=== PATIENT | female | born 1965 | race Caucasian/White ===

== ENCOUNTER 2024-08-21 07:29 | Emergency (ER) | payer OTHER, SELFPAY ==
[2024-08-21 07:35] VITALS: BP 193/99; PULSE 74; TEMP 36.6; O2SAT 98; BMI 42.8
--- NOTE | 2024-08-21 07:42 | XR_ITS ---
The [address] [address] Patient Name: DYLAN TRAN MRN: [id number] date: 1965 Sex: F Assigned Patient Location: ER Current Patient Location: ED.MAIN Accession/Order Number: [id number] Exam Date: 08/21/2024 07:50 Report Date: 08/21/2024 09:28 At the request of: DEAN FERMIN Procedure: XR knee RT 3V RIGHT KNEE THREE VIEWS: 08/21/2024 7:50 AM EDT Clinical Data: pain Comparison: No previous No evidence of acute fracture or dislocation. Small amount of fluid suprapatellar recess of the joint. No large shar effusion is evident. 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 Widths of both compartments are slightly reduced. Slight spurring at the lateral and medial compartments. Tug like overgrowth at the insertion/origins of the quadriceps and patellar tendons. Infrapatellar fat is preserved. XR/XR knee RT 3V IMPRESSION: 1. No evidence of acute fracture or dislocation. Electronically authenticated by: WHIT SANCHEZ Date: 08/21/2024 09:28
[2024-08-21] MEDS: KETOROLAC TROMETHAMINE 60 MG/2 ML VIAL IM (08:09)
--- NOTE | 2024-08-21 08:21 | ED.LOWEXI1 ---
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 And she thinks that she twisted her knee while walking and she started hurting right away, today she woke up not able to extend her knee without pain No fall or trauma no head injury Related Data Previous Rx's ?Medication ?Instructions ?Recorded diclofenac sodium 75 mg 75 mg PO BID PRN pain #14 tabs 08/21/24 tablet,delayed release Allergies Allergy/AdvReac Type Severity Reaction Status Date / Time No Known Drug Allergies Allergy Verified 08/21/24 07:35 Opioid HPI Opioid Management Most Recent Pain and Opioid Data: Last Pain Scale 0 08/21/24 09:22 08/21/24 Last ED Pain Assessment 08/21/24 09:22 Last MAR Pain Assessment 08/21/24 08:09 Review of Systems ROS Status of ROS 10 or more systems reviewed and unremarkable except as noted in history and below Exam Narrative Exam Narrative: Nurses notes and vital signs reviewed and patient is not hypoxic. Right knee exam; the patient have full range of movement preserved except for the full extension causing pain mostly anteriorly just below the patella and inside the knee. The patient had a negative anterior and posterior drawer signs General: Well-appearing and in no apparent distress. Skin: Warm, dry, no pallor noted. No rash. Head: Normocephalic, atraumatic. Neck: Supple, non-tender. Eye: Pupils are equal, round and EOMI. No scleral icterus. Ears, Nose, Mouth, and Throat: TM are clear, no nasal mucosal hypertrophy. Oral mucosa is moist, no posterior oropharynx erythema, uvula is mid-line Cardiovascular: Regular Rate and Rhythm without murmur, gallop or rub. Respiratory: No accessory muscle use or respiratory distress. Lungs are clear to auscultation, no wheezing, rales or rhonchi Chest Wall: no tenderness Back: No midline thoracic or lumbar vertebral tenderness. No CVA tenderness GI: Abdomen is soft, non-distended. Normal bowel sounds. No masses appreciated. No tenderness to palpation. No rebound, guarding, or rigidity noted. Neurological: A&O x4. No cranial nerve dysfunction observed. No truncal ataxia. Moves all extremities. Sensation intact. Psychiatric: Cooperative and interactive. Normal mood and affect. Constitutional Vital Signs, click to edit/add: Last Vital Signs Temp 97.8 F 08/21/24 07:35 Pulse 74 08/21/24 07:35 Resp 18 08/21/24 07:35 BP 193/99 H 08/21/24 07:35 Pulse Ox 98 08/21/24 07:35 O2 Del Method Room Air 08/21/24 07:35 Course Vital Signs Vital signs: Vital Signs Temperature 97.8 F 08/21/24 07:35 Pulse Rate 74 08/21/24 07:35 Respiratory Rate 18 08/21/24 07:35 Blood Pressure 193/99 H 08/21/24 07:35 Pulse Oximetry 98 08/21/24 07:35 Oxygen Delivery Method Room Air 08/21/24 07:35 Temperature 97.8 F 08/21/24 07:35 Pulse Rate 74 08/21/24 07:35 Respiratory Rate 18 08/21/24 07:35 Blood Pressure 193/99 H 08/21/24 07:35 Pulse Oximetry 98 08/21/24 07:35 Oxygen Delivery Method Room Air 08/21/24 07:35 MDM - Extremity Injury (Lower) MDM Narrative Medical decision making narrative: Right now the patient is not able to put weight on her right knee because it hurts and full extension of the knee also cause a lot of pain Right now the patient since we do not have work comp in our facility the patient will be referred to workup as outpatient X-ray of the right knee shows no acute pathology The patient was provided with Norman wrap as well as crutches with rest and elevation of the right knee for the next 2 days in addition to follow-up with work comp for possible referral to orthopedic on Friday Patient provided with Voltaren pills as well for pain management Discharge Plan Discharge Chief Complaint: Extremity Injury, Lower Clinical Impression: Injury of knee, ligament Qualifiers: Encounter type: initial encounter Laterality: right Qualified Code(s): S89.91XA - Unspecified injury of right lower leg, initial encounter Patient Disposition: Home, Self-Care Time of Disposition Decision: 09:26 Condition: Good Prescriptions / Home Meds: New diclofenac sodium 75 mg tablet,delayed release (DR/EC) 75 mg PO BID PRN (Reason: pain) Qty: 14 0RF Print Language: Tanzanian Instructions: Knee Sprain (ED), Crutch Instructions (ED), Meniscus Tear (ED) Additional Instructions: The patient to rest her right knee with crutches and the Norman wrap in addition to elevation for the next 2 days after that the patient can still use the crutches until she is evaluated by orthopedic and work comp Referrals: Ban Limon [Primary Care Provider] - 1 week Discharge Date/Time: 08/21/24 09:39
[2024-08-21 09:37] VITALS: PULSE 74; O2SAT 100
== END 2024-08-21 09:39 | disposition home or self-care (01) ==
PROVIDERS: Emergency Provider Emergency Medicine; PCP Nurse Practitioner Family
DX: S89.81XA Other specified injuries of right lower leg, initial encounter (principal); X50.1XXA Overexertion from prolonged static or awkward postures, initial encounter; Y93.89 Activity, other specified
CPT/HCPCS: 73562; 96372; 99284; J1885

== ENCOUNTER 2025-06-21 07:19 | Emergency (ER) | payer OTHER, BC, SELFPAY ==
--- OUTSIDE RECORDS SUMMARY | 2025-06-21 07:32 | XMS_ITS | CCD ---
Author Organization [facility] CliniSynj Care Team Providers Care Leather Piece Inspector Name Role Phone JEANIE SHULTZ Admitting Unavailable JEANIE SHULTZ Attending Unavailable PETTING, SARAH Primary Care Unavailable JEANIE SHULTZ Consulting Unavailable SHAKEEL, KEYANA Admitting Unavailable SHAKEEL, KEYANA Attending Unavailable SHAKEEL, KEYANA Primary Care Unavailable LISBETH SIMPSON Consulting Unavailable SHAKEEL, KEYANA Consulting Unavailable SARAH BETANCOURT Primary Care Physician [phone] Majo Vance Unavailable Unavailable Sridhar Dallas A Attending Unavailable Sridhar Dallas A Admitting Unavailable Dallas Waller Referring Unavailable Radha Diego Attending Unavailable SARAH BETANCOURT Referring Unavailable Sridhar, Dallas A Attending Unavailable Brown, Dallas A Admitting Unavailable Brown, Dallas A Referring Unavailable Brown, Dallas A Attending Unavailable Brown, Dallas A Admitting Unavailable Brown, Dallas A Referring Unavailable Petznick, DO Sarah Primary Care Provider [phone] Petznick, DO Sarah Attending Provider [phone] Juan C France Unavailable Petznick DO Sarah Primary Care Provider [phone] Negra FISHMAN, Anthony Attending Provider Petznick DO, Sarah Primary Care Provider [phone] Negra FISMHAN, Edward Attending Provider PetSarah benitez Primary Care Unavailable Radatz Jr, Edward Admitting Unavailable Radatz Jr, Edward Attending Unavailable Radatz Jr, Edward Admitting Unavailable Petznick, Sarah Primary Care Unavailable Radatz Jr, Edward Attending Unavailable Radatz Jr, Edward Admitting Unavailable Petznick, Sarah Primary Care Unavailable Radatz Jr, Edward Attending Unavailable Radatz Jr, Edward Attending Unavailable Petznick, Sarah Primary Care Unavailable Anthony Omer Jr Admitting Unavailable Anthony Omer Jr Admitting Unavailable Sarah Betancourt Primary Care Unavailable Anthony Omer Jr Attending Unavailable Sarah Betancourt Primary Care Unavailable Diego Duran Admitting Unavailable Diego Duran Attending Unavailable Sarah Betancourt DO Primary Care Provider SARAH BETANCOURT Attending Unavailable SARAH BETANCOURT Attending Unavailable RICHI HOANG Attending Unavailable SARAH BETANCOURT Referring Unavailable Medications Current Medications Medication Drug Class(es) Dates Sig (Normalized) Sig (Original) 0.5 ML semaglutide 0.5 MG/ML Auto-Injector [Wegovy] (4 sources) Start: 06-11-2023 inject 0.25 mg by subcutaneous injection every week Wegovy 0.25 MG/0.5ML 0.25 mg Subcutaneous Once weekly for 30 days May, Active inject 0.25 mg by keller bcutaneous injection every week Wegovy 0.25 MG/0.5ML 0.25 mg Subcutaneou s Once weekly for 30 days Active acetaminophen 500 mg oral tablet (2 sources) Start: 08-13-2019 take 2 tablets by mouth three times daily as needed for pain Tylenol Extra Strength 500 mg oral tablet 1,000 mg = 2 tab(s), Oral, TID, PRN as needed for pain, Refills(s) 0, Pain Start Date: 08/13/19 Status: Ordered acetaminophen 325 mg / HYDROcodone bitartrate 5 mg oral tablet (4 sources) Opioid Agonist Start: 02-15-2024 take 1 tablet by mouth every six hours as needed for pain Hydrocodone-Aceta minophen 5-325 mg tablet Active 1 TAB PO Q6H as needed for Pain 10 February 15, 2024 azithromycin 250 mg oral tablet (2 sources) Macrolide Antimicrobial Start: 05-17-2025 End: 05-22-2025 take 2 tablets by mouth once daily, then take 1 tablet by mouth once daily azithromycin (Zithromax) 250 MG tablet Indications: Sore throat , Pharyngitis, unspecified etiology Take 2 tablets (500 mg) by mouth Daily for 1 day, THEN 1 tablet (250 mg) Daily for 4 days. 6 tablet 05/17/2025 05/22/2025 Active celecoxib 100 mg oral capsule (2 sources) Nonsteroidal Anti-inflammatory Drug Start: 01-04-2022 take 1 capsule by mouth twice daily as needed for pain CeleBREX 100 mg Cap 100 mg = 1 cap(s), Oral, BID, PRN for pain, # 60 cap(s), Refills(s) 0, Pharm[facility]: [facility], 170, cm, 12/20/21 13:31:00 EST, Height/Length Dosing, 121, kg, 12/20/21 13:31:00 EST, Weight Dosing Start Date: 01/04/22 Status: Ordered dexamethasone 6 mg oral tablet (4 sources) Corticosteroid Start: 05-17-2025 End: 05-20-2025 take 1 tablet by mouth once daily dexAMETHasone (Decadron) 6 MG tablet Indications: Sore throat , Pharyngitis, unspecified etiology Take 1 tablet (6 mg) by mouth Daily for 3 days 3 tablet 05/17/2025 Active docusate sodium 100 mg oral capsule (2 sources) Start: 01-04-2022 take 1 capsule by mouth twice daily as needed for constipation Colace 100 mg Cap 100 mg = 1 cap(s), Oral, BID, PRN for constipation, # 20 cap(s), Refills(s) 0, [facility]: [facility], 170, cm, 12/20/21 13:31:00 EST, Height/Length Dosing, 121, kg, 12/20/21 13:31:00 EST, Weight Dosing Start Date: 01/04/22 Status: Ordered famotidine 40 mg oral tablet (6 sources) Histamine-2 Receptor Antagonist Start: 10-15-2020 take 1 tablet by mouth once daily at bedtime Famotidine (Pepcid) 40 mg tablet Active 40 MG PO Daily at bedtime October 15, 2020 12:00am ibuprofen 800 mg oral tablet (6 sources) Nonsteroidal Anti-inflammatory Drug Start: 02-15-2024 take 1 tablet by mouth three times daily as needed for pain Ibuprofen 800 mg tablet Active 800 MG PO Three times daily as needed for Pain February 14, 2024 11:00pm Start: 08-13-2019 take 2 tablets by mo [facility] three times daily as needed for pain ibuprofen 200 mg Tab 400 mg = 2 tab(s), Oral, TID, PRN as needed for pain, Refills(s) 0, Pain Start Date: 08/13/19 Status: Ordered ondansetron 4 mg disintegrating oral tablet (10 sources) Serotonin-3 Receptor Antagonist Start: 02-15-2024 Ondansetron 4 mg tablet,disintegrating Active 4 MG PO every 6 to 8 hours February 14, 2024 11:00pm Start: 10-15-2020 take 1 tablet by erin th every six hours as needed for nausea and vomiting Ondansetron Hcl (Zofran) 4 mg tablet Active 4 MG PO Q6H as needed for nausea and vomiting October 15, 2020 12:00am phentermine hydrochloride 37.5 mg oral tablet (1 source) Sympathomimetic Amine Anorectic Start: 08-06-2023 take 1 tablet by mouth once daily before breakfast Phentermine HCl 37.5 MG 1 tablet before breakfast Orally Once a day for 30 days Jul, Active predniSONE 20 mg oral tablet (3 sources) Start: 04-20-2025 End: 04-30-2025 take 2 tablets by mouth once daily, then take 1 tablet by mouth once daily, then take 0.5 tablet by mouth once daily predniSONE (Deltasone) 20 MG tablet Indications: Herpes zoster without complication Take 2 tablets (40 mg) by mouth Daily for 3 days, THEN 1 tablet (20 mg) Daily for 3 days, THEN 0.5 tablets (10 mg) Daily for 4 days. 11 tablet 04/20/2025 04/30/2025 Active rosuvastatin calcium 20 mg oral tablet (5 sources) HMG-CoA Reductase Inhibitor Start: 05-12-2025 End: 05-12-2026 take 1 tablet by mouth once daily rosuvastatin (Crestor) 20 MG tablet Indications: Pure hypercholesterolemia Take 1 tablet (20 mg) by mouth Daily 30 tablet 11 05/12/2025 05/12/2026 Active SEMAGLUTIDE, 1 MG/DOSE, SC (8 sources) SEMAGLUTIDE, 1 M G/DOSE, SC Inject under the skin [facility] in [place]-unsure of dosage. Currently using 40cc weekly Active tamsulosin hydrochloride 0.4 mg oral capsule (4 sources) alpha-Adrenergic Roseann Start: 04-28-2024 take 1 capsule by mouth once daily Tamsulosin (Flomax) 0.4 mg capsule Active 0.4 MG PO Daily February 14, 2024 11:00pm tizanidine (1 source) Central alpha-2 Adrenergic Agonist Start: 10-22-2022 tizanidine Orally at bedtime, Refills(s) 0 Start Date: 10/22/22 Status: Ordered valACYclovir 1000 mg oral tablet (3 sources) Herpesvirus Nucleoside Analog DNA Polymerase Inhibitor, Herpes Simplex Virus Nucleoside Analog DNA Polymerase Inhibitor, Herpes Zoster Virus Nucleoside Analog DNA Polymerase Inhibitor Start: 04-20-2025 End: 04-27-2025 valACYclovir (Valtrex) 1 g tablet Indications: Herpes zoster without complication Take 1 tablet (1,000 mg) by mouth in the morning and 1 tablet (1,000 mg) at noon and 1 tablet (1,000 mg) in the evening. Do all this for 7 days. 21 tablet 04/20/2025 04/27/2025 Active valsartan 160 mg oral tablet (8 sources) Angiotensin 2 Receptor Roseann Start: 04-20-2025 End: 04-20-2026 take 1 tablet by mouth once daily valsartan (Diovan) 160 MG tablet Indications: Elevated blood pressure reading Take 1 tablet (160 mg) by mouth Daily 30 tablet 3 04/20/2025 04/20/2026 Active Completed/Discontinued Medications Medication Drug Class(es) Dates Sig (Normalized) Sig (Original) Acetaminophen / oxyCODONE (2 sources) Opioid Agonist Start: 01-04-2022 Percocet 325 mg-5 mg Tab See Instructions, as needed for pain, 40 tab(s), Refill(s) 0, 1-2 tab(s) Oral q4hr, [facility], 170, cm, 12/20/21 13:31:00 EST, Height/Length Dosing, 121, kg, 12/20/21 13:31:00 EST, Weight Dosing Start Date: 01/04/22 Status: Ordered Start: 01-04-2022 Percocet 325 m g-5 mg Tab See Instructions, as needed for pain, 40 tab(s), Refill(s) 0, 1-2 tab(s) Oral q4hr, [facility], 170, cm, 12/20/21 13:31:00 EST, Height/Length Dosing, 121, kg, 12/20/21 13:31:00 EST, Weight Dosing Start Date: 01/04/22 Status: Ordered Problems Active Problems Problem Classification Problem Date Documented Date Episodic/Chronic Administrative/socia l admission (4 sources) Dietary counseling and surveillance; Translations: [Other specified counseling] Episodic Calculus of urinary tract (17 sources) Kidney stone; Translations: [Calculus of kidney] Onset: 02-15-2024 02-23-2024 Episodic Cancer; other and unspecified primary (2 sources) H/O Malignant melanoma 12-20-2021 Episodic Diabetes mellitus without complication (3 sources) Other abnormal glucose Episodic Disorders of lipid metabolism (6 sources) Dyslipidemia; Translations: [Hyperlipidemia, unspecified] Chronic Esophageal disorders (6 sources) Gastroesophageal reflux disease; Translations: [Gastro-esophageal reflux disease without esophagitis] Chronic Genitourinary symptoms and ill-defined conditions (2 sources) Dysuria; Translations: [Dysuria] 04-20-2025 Episodic Nonmalignant breast conditions (4 sources) Fibrocystic disease of breast; Translations: [Diffuse cystic mastopathy of right breast] Chronic Osteoarthritis (12 sources) Arthritis of hip; Translations: [Unilateral primary osteoarthritis, unspecified hip] Onset: 04-20-2025 04-20-2025 Chronic Other acquired deformities (4 sources) Acquired kyphosis; Translations: [Other secondary kyphosis, cervical region] Chronic Other circulatory disease (3 sources) Elevated blood pressure; Translations: [Elevated blood-pressure reading, without diagnosis of hypertension] 04-20-2025 Episodic Other connective tissue disease (4 sources) Bicipital tendinitis, right shoulder; Translations: [BICIPITAL TENDINITIS RIGHT SHOULDER] Onset: 06-02-2019 Episodic Other connective tissue disease (3 sources) Pain in right arm; Translations: [PAIN IN RIGHT ARM] Onset: 05-01-2019 Episodic Other connective tissue disease (8 sources) Partial thickness rotator cuff tear; Translations: [Incomplete rotator cuff tear or rupture of unspecified shoulder, not specified as traumatic] Onset: 04-20-2025 04-20-2025 Episodic Other nervous system disorders (4 sources) Cervical myelopathy; Translations: [Disease of spinal cord, unspecified] Chronic Other non-epithelial cancer of skin (2 sources) Basal cell carcinoma of skin 12-20-2021 Episodic Other nutritional; endocrine; and metabolic disorders (4 sources) Morbid obesity; Translations: [Morbid (severe) obesity due to excess calories] Chronic Other nutritional; endocrine; and metabolic disorders (3 sources) Morbid (severe) obesity due to excess calories Chronic Other nutritional; endocrine; and metabolic disorders (8 sources) Body mass index 40+ - severely obese; Translations: [Morbid (severe) obesity due to excess calories] Onset: 04-20-2025 04-20-2025 Chronic Other nutritional; endocrine; and metabolic disorders (2 sources) Severe obesity; Translations: [Morbid (severe) obesity due to excess calories] 05-17-2025 Chronic Other screening for suspected conditions (not mental disorders or infectious disease) (8 sources) Patient encounter status; Translations: [Encounter for screening mammogram for malignant neoplasm of breast] Onset: 05-25-2025 04-20-2025 Episodic Other upper respiratory infections (16 sources) Sinusitis; Translations: [Chronic sinusitis, unspecified] Onset: 04-20-2025 04-20-2025 Chronic Other upper respiratory infections (4 sources) Sore throat symptom; Translations: [Acute pharyngitis, unspecified] 05-17-2025 Episodic Spondylosis; intervertebral disc disorders; other back problems (20 sources) Lumbar arthritis; 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, lumbar region] Onset: 04-20-2025 04-20-2025 Chronic Sprains and strains (1 source) Sprain of unspecified site of right knee, subsequent encounter; Translations: [Sprain of unspecified site of right knee, subsequent encounter] Onset: 12-13-2024 Episodic Past or Other Problems Problem Classification Problem Date Documented Da te Episodic/Chronic Other connective tissue disease (10 sources) Disorder of rotator cuff; Translations: [Unspecified disorder of synovium and tendon, unspecified shoulder] Onset: 04-20-2025 Resolved: 05-17-2025 08-13-2019 Episodic Comment on above: right Spondylosis; intervertebral disc disorders; other back problems (20 sources) Backache; Translations: [Chronic low back pain] Onset: 04-20-2025 Resolved: 05-17-2025 01-04-2022 Episodic Unclassified (1 source) Exposure to 2019 novel coronavirus; Translations: [Contact with and (suspected) exposure to COVID19] Unclassified (2 sources) Patient encounter status 04-20-2025 Viral infection (16 sources) Disease caused by 2019-nCoV; Translations: [COVID-19] Onset: 04-20-2025 Resolved: 05-17-2025 10-15-2020 Episodic Results Test Name Value Interpretation Reference Range Facility Laboratory - Microbiology an d Antimicrobial susceptibilityon 05-17-2025 S. pyogenes Ag Ql (Throat) Negative Negative, None Detected [facility] SARS-CoV-2 (COVID-19) RNA CRISTO+probe Ql (Unsp spec) Negative [facility] No Panel Informationon 05-17 Interpretation and review of laboratory results Normal [facility] FLU A Negative [facility] FLU B Negative [facility] Interpretation and review of laboratory results Normal [facility] Urinalysis macro (dipstick) panel (U)on 04-20-2025 Bilirubin, UA Negative Negative - 4(70) +++ mg/dL [facility] Blood, UA Negative Negative - 50 Ernesto/mcL [facility] Clarity, UA Clear [facility] re Color, [facility]A [facility] Glucose, [facility]A Negative Negative - 1999(110) ++++ mg/dL [facility] Interpretation and review of laboratory results Normal [facility] Ketones, UA Negative Negative - 160(16) ++++ mg/dL [facility] Leukocytes, UA Negative Negative - 500+++ Izaiah/mcL [facility] Nitrite, UA Negative Negative - Positive [facility] pH, UA 6.5 5 - 9 [facility] Protein, UA Negative Negative - 1999(20) ++++ mg/dL [facility] Spec Grav, UA 1.015 1 - 1.03 [facility] Urobilinogen, UA 0.2 0.2 - 12 mg/dL [facility] Complete Blood Count Auto Di ffon 02-15-2024 Basophils (Bld) [#/Vol] 0.1 10*3/uL Normal 0.0-0.2 [facility] Comment on above: Result Comment: PERF ORMED BY: [facility] [address] [place] [address] PATHOLOGIST PRODUCT MARKETING ENGINEER EBONY SHETTY M.D. Performed By: #### C BC, CMP #### [place] [address] [place] Basophils/100 WBC (Bld) 0.9 % Normal . [facility] Comment on above: Performed By: #### C BC, CMP #### [address] Eosinophils (Bld) [#/Vol] 0.5 10*3/uL High 0.0-0.45 [facility] Comment on above: Performed By: #### C BC, CMP #### [place] [address] [place] Eosinophils/100 WBC (Bld) 6.5 % Normal . [facility] Comment on above: Performed By: #### C BC, CMP #### [address] Erythrocyte distribution width (RBC) [Ratio] 13.8 % Normal 11.9-15.3 [facility] Comment on above: Performed By: #### C BC, CMP #### [address] Hematocrit (Bld) [Volume fraction] 43.0 % Normal 34.0-46.4 [facility] Comment on above: Performed By: #### C BC, CMP #### [address] Hemoglobin (Bld) [Mass/Vol] 14.6 g/dL Normal 11.8-15.4 [facility] Comment on above: Performed By: #### C BC, CMP #### [place] [address] [place] Lymphocytes (Bld) [#/Vol] 2.0 10*3/uL Normal 1.00-4.8 [facility] Comment on above: Performed By: #### C BC, CMP #### [place] [address] [place] Lymphocytes/100 WBC (Bld) 28.3 % Normal . [facility] Comment on above: Performed By: #### C BC, CMP #### [address] MCH (RBC) [Entitic mass] 30.2 pg Normal 24.7-34.3 [facility] Comment on above: Performed By: #### C BC, CMP #### [address] MCV (RBC) [Entitic vol] 89.0 fL Normal 80-100 [facility] Comment on above: Performed By: #### C BC, CMP #### [address] Mean Corpuscular HGB Conc 33.9 g/dL Normal 32.0-35.0 [facility] Comment on above: Performed By: #### C BC, CMP #### [address] Monocytes (Bld) [#/Vol] 0.6 10*3/uL Normal 0.0-0.8 [facility] Comment on above: Performed By: #### C BC, CMP #### [address] Monocytes/100 WBC (Bld) 16.68 % Normal 0.00-20.00 [facility] Comment on above: Performed By: #### C BC, CMP #### [address] Monocytes/100 WBC (Bld) 8.8 % Normal . [facility] Comment on above: Performed By: #### C BC, CMP #### [address] Neutrophils (Bld) [#/Vol] 3.9 10*3/uL Normal 1.8-7.7 [facility] Comment on above: Performed By: #### C BC, CMP #### [address] Neutrophils/100 WBC (Bld) 55.5 % Normal . [facility] Comment on above: Performed By: #### C BC, CMP #### [place] [address] NRBC% 0.1 /100{WBC} Normal 0-0.5 [facility] Comment on above: Performed By: #### C BC, CMP #### [address] Platelet mean volume (Bld) [Entitic vol] 7.1 fL Normal 6.3-10.7 [facility] Comment on above: Performed By: #### C BC, CMP #### [address] Platelets (Bld) [#/Vol] 221 10*3/uL Normal 150-450 [facility] Comment on above: Performed By: #### C BC, CMP #### [address] RBC (Bld) [#/Vol] 4.83 10*6/uL Normal 3.60-5.00 [facility] Comment on above: Performed By: #### C BC, CMP #### [address] WBC (Bld) [#/Vol] 7.0 10*3/uL Normal 3.8-11.6 [facility] Comment on above: Performed By: #### C BC, CMP #### [address] Comprehensive Metabolic Pane kaelyn 02-15-2024 Albumin [Mass/Vol] 4.2 g/dL Normal 3.5-5.7 [facility] Comment on above: Performed By: #### C BC, CMP #### [address] Albumin/Globulin [Mass ratio] 1.6 {ratio} Normal [facility] Comment on above: Performed By: #### C BC, CMP #### [address] ALP [Catalytic activity/Vol] 49 U/L Normal 34-104 [facility] Comment on above: Performed By: #### C BC, CMP #### [address] ALT [Catalytic activity/Vol] 26 U/L Normal 7-52 [facility] Comment on above: Performed By: #### C BC, CMP #### [address] Anion gap [Moles/Vol] 13.4 mmol/L Normal 6.0-15.0 [facility] Comment on above: Performed By: #### C BC, CMP #### [address] AST [Catalytic activity/Vol] 22 U/L Normal 13-39 [facility] Comment on above: Performed By: #### C BC, CMP #### [address] Bilirubin [Mass/Vol] 1.3 mg/dL High 0.3-1.0 [facility] Comment on above: Result Comment: [facility] who have taken Naproxen have shown spurious elevation in Total Bilirubin levels. A metabolite of Naproxen, O-desmethylnaproxen, has been shown to interfere with the Jendrassik-Grof method for measuring Total Bilirubin. Performed By: #### C BC, CMP #### [address] Calcium [Mass/Vol] 9.7 mg/dL Normal 8.6-10.3 [facility] Comment on above: Performed By: #### C BC, CMP #### [place] [address] [place] Chloride [Moles/Vol] 105 mmol/L Normal 98-107 [facility] Comment on above: Performed By: #### C BC, CMP #### [place] [address] [place] CO2 [Moles/Vol] 27.6 mmol/L Normal 21.0-31.0 [facility] Comment on above: Performed By: #### C BC, CMP #### [address] Creatinine [Mass/Vol] 1.08 mg/dL Normal 0.60-1.20 [facility] Comment on above: Performed By: #### C BC, CMP #### [address] Creatinine Clr Calc Pharmacy 73.09 Normal [facility] Comment on above: Result Comment: PERF ORMED BY: [place] [address] PATHOLOGIST PRODUCT MARKETING ENGINEER EBONY SHETTY M.D. Performed By: #### C BC, CMP #### [place] [address] [place] GFR/1.73 sq M.predicted MDRD (S/P/Bld) [Vol rate/Area] 58.805 mL/min/{1.73_m2} Normal [facility] Comment on above: Performed By: #### C BC, CMP #### [place] [address] [place] Globulin (S) [Mass/Vol] 2.7 g/dL Normal [facility] Comment on above: Performed By: #### C BC, CMP #### [address] Glucose [Mass/Vol] 116 mg/dL High 70-100 [facility] Comment on above: Result Comment: [facility] Glucose Reference Range is dependent on time and content of last meal. Glucose of more than 200 mg/dL in a nonstressed, ambulatory subject supports the diagnosis of Diabetes Mellitus. ADA recommended reference range Performed By: #### C BC, CMP #### [address] Potassium [Moles/Vol] 4.0 mmol/L Normal 3.5-5.1 [facility] Comment on above: Performed By: #### C BC, CMP #### [address] Protein [Mass/Vol] 6.9 g/dL Normal 6.4-8.9 [facility] Comment on above: Performed By: #### C BC, CMP #### [place] [address] [place] Sodium [Moles/Vol] 142 mmol/L Normal 136-145 [facility] Comment on above: Performed By: #### C BC, CMP #### [address] Urea nitrogen [Mass/Vol] 13 mg/dL Normal 7-25 [facility] Comment on above: Performed By: #### C BC, CMP #### [place] [address] [place] Dipstick and Microscopicon 0 02-15-2024 Appearance (U) Clear Normal Clear [facility] Comment on above: Order Comment: Name Collection Type:: Voided Performed By: #### A DDONUAPLUS #### [place] [address] [place] Bacteria,Urine None Seen Normal None Seen [facility] Comment on above: Order Comment: Name Collection Type:: Voided Performed By: #### A DDONUAPLUS #### [place] [address] [place] Bilirubin,Urine Negative Normal Negative [facility] Comment on above: Order Comment: Name Collection Type:: Voided Performed By: #### A DDONUAPLUS #### [address] Color (U) Yellow Normal Yellow [facility] Comment on above: Order Comment: Name Collection Type:: Voided Performed By: #### A DDONUAPLUS #### [place] [address] [place] Glucose Ql (U) Normal Normal Normal [facility] Comment on above: Order Comment: Name Collection Type:: Voided Performed By: #### A DDONUAPLUS #### [place] [address] [place] Hyaline Casts,Urine 0-8 Normal 0-8 [facility] Comment on above: Order Comment: Name Collection Type:: Voided Result Comment: PERF ORMED BY: [place] [phone] PATHOLOGIST PRODUCT MARKETING ENGINEER EBONY SHETTY M.D. Performed By: #### A DDONUAPLUS #### [address] [address] Ketones Ql (U) Negative Normal Negative [facility] Comment on above: Order Comment: Name Collection Type:: Voided Performed By: #### A DDONUAPLUS #### [address] Leukocyte esterase Test strip Ql (U) 2+ High Negative [facility] Comment on above: Order Comment: Name Collection Type:: Voided Performed By: #### A DDONUAPLUS #### [address] Nitrite,Urine Negative Normal Negative [facility] Comment on above: Order Comment: Name Collection Type:: Voided Performed By: #### A DDONUAPLUS #### [address] Occult Blood,Urine 2+ High Negative [facility] Comment on above: Order Comment: Name Collection Type:: Voided Result Comment: PERF ORMED BY: [place] [address] PATHOLOGIST PRODUCT MARKETING ENGINEER EBONY SHETTY M.D. Performed By: #### A DDONUAPLUS #### [address] pH (U) 7.5 [pH] Normal 5.0-9.0 [facility] Comment on above: Order Comment: Name Collection Type:: Voided Performed By: #### A DDONUAPLUS #### [place] [address] [place] Protein,Urine Negative Normal Negative [facility] Comment on above: Order Comment: Name Collection Type:: Voided Performed By: #### A DDONUAPLUS #### [address] RBC,Urine 3-4 Normal 0-4 [facility] Comment on above: Order Comment: Name Collection Type:: Voided Performed By: #### A DDONUAPLUS #### [address] Specificy Arvin,Urine 1.006 Normal 1.001-1.030 [facility] Comment on above: Order Comment: Name Collection Type:: Voided Performed By: #### A DDONUAPLUS #### [address] Squamous Epithelial Cell,Urine 0-1 Normal 0-2 [facility] Comment on above: Order Comment: Name Collection Type:: Voided Performed By: #### A DDONUAPLUS #### [address] Urobilinogen,Urine Normal Normal Normal [facility] Comment on above: Order Comment: Name Collection Type:: Voided Performed By: #### A DDONUAPLUS #### [address] WBC,Urine 3-4 Normal 0-4 [facility] Comment on above: Order Comment: Name Collection Type:: Voided Performed By: #### A DDONUAPLUS #### [address] XR KUBon 02-15-2024 XR KUB [facility] [place] [address] XRay Report Signed Patient: Dylan Gamble MR#: [id number] : 1965 Acct:[id number] Age/Sex: 58 / F ADM Date: 02/15/24 Loc: ER Room: Type: [facility] ER Attending Dr: Copies to: Diego Duran DO Ordering Provider: Diego Duran DO Date of Service: 02/15/24 XR/XR KUB: Abdominal Pain Single view of abdomen COMPARISON: None HISTORY: Kidney stone. Hematuria. LEFT flank pain. THORAX: Not assessed FREE AIR: Supine position limits assessment BOWEL: No gaseous intestinal distention. STOOL: No significant stool RENAL STONES: No significant stones present. VASCULAR CALCIFICATIONS: Unremarkable SOFT TISSUE: Unremarkable BONES: Degenerative change POSTSURGICAL CHANGES: Cholecystectomy clips XR/XR KUB IMPRESSION: No visible stone. Impression dictated by: Kevin Eason M.D.02/15/2024 9:30 AM Dictation Location: [place] [address] Transcribed By: [facility] 02/15/24929 Dictated By: Kevin Eason DO 02/15/24927 Signed By: 02/15/24929 Normal [facility] A1C HEMOGLOBINon 06-11-2023 HbA1c (Bld) [Mass fraction] 5.9 % [facility] Other HbA1c (Bld) [Mass fraction]o n 06-11-2023 A1C HEMOGLOBIN [facility] Other COVID CepheidOrdered By: Dieudonne Betancourt on 12-25-2022 SARS-CoV-2 (COVID-19) Ab IA Ql Negative Negative [facility] Comment on above: This is a duplicate Byliner Xpert Xpress CoV-2/Flu/RSV Plus RNA by RT-PCR result to be used for statistical tracking purpose only. SARS-CoV-2 (COVID-19) RNA CRISTO+probe Ql (Unsp spec) [facility] SCREENING MAMMOGRAM W/MALIK, BILATERAL*on 09-04-2022 SCREENING MAMMOGRAM W/MALIK, BILATERAL* CLINICAL HISTORY: Screening Mammogram COMPARISON: Priors from 2016 TECHNIQUE: 2D and 3D mammogram imaging of both breasts was performed. RESULT: DENSITY: There are scattered areas of fibroglandular density. There is no suspicious mass, asymmetry, architectural distortion, or calcification. No significant change since the prior mammograms. IMPRESSION: BIRADS 1 : NEGATIVE, NORMAL INTERVAL FOLLOW UP FOLLOW-UP: 12 months DENSITY: Scattered MAMMOGRAPHY IS VERY IMPORTANT TO YOUR HEALTH. THE CURRENT [employer] GUIDELINES RECOMMENDS ANNUAL MAMMOGRAPHY BEGINNING AT AGE 40 THIS FACILITY USES A REMINDER SYSTEM TO ENSURE ALL PATIENTS RECEIVE REMINDER NOTIFICATIONS AT THE APPROPRIATE TIME BASED ON THE RECOMMENDATIONS OF THIS EXAM. Board Certified Radiologist. Accredited by the ACR and FDA. Report reported and signed by Favio Goldsmith on 09/04/2022 1617 Normal [facility] Physician Referralon 022 Physician Referral [id number]#1 .00CD:127 Normal [facility] Consent for Anesthesiaon Consent for Anesthesia [id number]# 1.00CD:127 Normal [facility] IntraOperative Documentson 0 01-18-2022 IntraOperative Documents [id number]#1 .00CD:127 Normal [facility] Postoperative Documentson Postoperative Documents [id number]# 1.00CD:127 [facility] IntraOperative Documentson 0 01-08-2022 IntraOperative Documents [id number]# 1.00CD:127 Normal [facility] Coding Summary.on 01-07-2022 Coding Summary. CD:[id number] G h0bWw+PGhlYWQ+IX1TZDJ aE01ylUSyuT9LA7fMES5C OLAPDATFWA6UWT6pgAU9M JhxQ3FsuoPt CsmnjBJfHJ22GEv5ZDW4k ErcCZztmR1mbXTtL6k8Wg CnAH01bN27HOrfDUMqNxM 3LjZpbjsgbWFy U3mpUpLunJGcPjl+PHRhY mxlIHdpZHRoPScxMDAlJy BazJfoXE7tPs5zOTEaSPA vbGxhcHNlOiBj f6xyLMVmZNskKN4snYqpW 2JayMR9YTQfw9t9Kn79pO I+NCOhIVF6gXxrPGfxs87 5GfIee5fiNEZ7 lGCxVOttTHZ1D27ng5M4R YCaURBeVOP1rNK2vX4koG snacsaE3CowRMnDlC6OZO 4qEYlxF5nhZvm ppibnR1ePvl+N55YKT7UM CGWLS0PIlf6I4GkGhmqwV I+XC11KUDiPC05tFSfsIM xq8mzwSr3GdIv PEKgIUG5bJgxVFksw0KlN ORrK58haPAss3U2KAHlgJ lpcOBaJqBoqVY6wN2aNXt zffneu1jjpgoo Buaab6oxmp69kJ90R26sJ WvvAFRxARA9FPVlNPMsmF retk6blT6pMi4+BBeyk6u la9owlNd1LgLf HFIrxgKgdXquFYU6c1NtZ l38B6JvaSiuu4CzZgf7is 66mMXph6C4jSH5UEnyCPF nyK7wSEntNfJ2 UYCkOrYcwC93jWXcSNgtX c6yuFkgzAydDA2fFLXkhm xiXJEcdG7vZKCckPBjnBy cHT9aLRVannzx h824VnBmDSB6MDIzjTMeE 7VakL4rYkLaGMLtJOBlU6 VfmWZcKJcxS103IEuwXuX 9GMQfsmTgY9Ol KXNakLwkBjM5o8K2Hg2Zj 0YkxbgvBGY4EBbmGAQeGj DdKcEvOrW0R2ZwGfe5CJL gsNonFM5bG3Te JABpupumznglzBU7ISEdV FByyZ43rOYsEGwaUm0wy1 R1p159CUCoBMDkuR83Aa8 udDogMTBwdCBU eM8otogdd1nrozbiKvGkP JXhESq4TNl0LUQysIxxCo WbUPC8VeX1RQT8oASwaZ2 iqRuvtfwjuG3y Oyc+G23osN3lPOE3FPW4t mkqAQVgrzVeCY58AC27E9 RyPjwvdGFibGU+PGRpdiB nfIasWI4cPpOo v7xkb0NsCPsgR1XuMHGoL GibIsx3PGMhEFY7hRX4mC 7zJLEgNAcmn6Y5oTY2D2Z mdxYkwp6iy6jd KNMgHMlpB00nyNBro9D0S SAypSO5DJMrgJxqYySijI 93Oyc+WIBgoFugj3VtOvk or8asd5twxQj2 AxEwEVEwfeLapRwbIIQ6n 1YwXp22L84gUWbbISSrDC AlJFZhUFYjrEcfha3dnD9 wIi8+PGNvbCB3 jIS5yQ0nRJZnWdT7JKkyM 505CdKhfYGsLdxnk0lnl8 vpwCr1CrByAZKpdnKqdQw uLKQ1i5BqEe36 M54pZJyuNLAbLPDgZHNbM EIwaRpbzy1tzK0eQn5+PC 4ax4uvcl18rE15kWV+PHR uRJF0vDqiFXzx MDWmiE3wRFcqQnQ6CXHnT vXyjG84qUKfWWpiBl4ohG pxxEbgGQ7lJKJyxalnh59 5FdSzo9deLHRi gCLlIGtcNCB1E33uv3Y1G OIhDXOlWDO9rWO4mH0cvD lnbjogbGVmdDsgdmVydGl uIFsfZYehY710 IHRvcDsnPlBhdGllbnQgT eRwECc0Q2RvSeh1JRXmfR vsHU0foURgAAfnRh6ftNp bgPbvBM7eZVDd inehq938LnPne5grGWHcj OSpNUyjGIZ1L22rd8R6XW EgQMUqWYZ0pBR8vN6ftTp nbjogbGVmdDsg shHisPloKKfvAPaeU745U HRvcDsnPkJpcnRoIERhdG L4ZL92AJ38lNQhh0R5aYA 7D2DlPKNuhbfu hqosoVD2OFDrUZXrcF44Z n1glOesKd0rTFZaUKS2ZF JxgWOgS8LoxV2cYvYvNZO kLWUqX9WheEIj KAflQ821CPbnPrA9JNXrj dOoF2DbEKXjfZdoWxU3r4 Y6Px2IR5R6CE24AP67iAR kb2I5mLA2K5Wr ENLpnvmclicvaSU7VRKzA RMtvG67Qt8soOxpGt4tXE XzHIT9WACspDHzP8CghI4 yOiAjMDAwMDAw O1KgzAAaMHuyY502DJyuR rJ3YZSkoaGiB3PrVXKrxJ neUyH4e5U2Dd6VANz8XK4 3RU77sDHdw1X4 fPN4T9WmXTNzgdyabyxot FL2KEAuGTQdnD22No6tuL bgIx8mBWJcCUR4YXIagIZ yN3OmeJ4mToQn QTWcSOXcJ0HetEAiYYvbJ 136GBtoAqO5RXMxygZnB9 RhKBTuvShuZiU9j4L6Ja2 DBWHjFV12KYA9 yAB7OE08KJ28C4WhEbztk GFibGU+PHRhYmxlIHdpZH RoPScxMDAlJyBzdHlsZT0 hTg0yVVJeSSWf xArhuLDeCuQyg7tbKHLeR SpjFI6fuHjvE2XukIS1HK Cbp5g6Yg24G28xQ4ZbhZK +CTQruKH8oIJ3 oM8eEiRtMuQ8XIpiF757T mJlcGDdSqrro0jlx1rgrK q6NeA8WNYtdpWzoIsoXDQ 7g6OkIm46O91f IHdpZHRoPSIxNSUiIHZhb Cdupb9quK4xXx0+PGNvbC T6aOV7yH4cMmSjCpY3XJi qN405ZlKudTFv Oghds3ibm5hlhAg1OvEbV AEvpfOrpEopEOJ9s5MjHa 33H3TyvNzxe7SjUeh4km6 3dGNjz5Q5tIK5 Z7IwOOFtgbttoUKumXfjT K5nHUMsweoiBSYraV7gHK OrE4f7WhOyJwA3CLipV4B tobS5HJTqiNDy IOhiFMI3Y02zo2S8LXDoG FSaFVO0wXQ0kA8wrLghwk ogbGVmdDsgdmVydGljYWw iXHueV514RGPf aUscVJGswO9tOMYncCWtm LvcJV1hABTaznsnKdmODY yISqJnIUDGL88HCQEVZW5 3FR36zEYmu0T5 eRU8C1YmHXAolrwlxhjxq HZ5EPDhQMGiiT84oZZhAV ywAr0qr0B9w019WEUdUIR huY96Ma8qcCsj QJQdqPTXzR7dwmffb5jfq auwDjWqJAFbPXy3KSy9AA KdiFnsWrXyXPY0XiI7PKF 8gZEefC2srCoy nqkgjH4oHyi+MTAvMTIvM Ri8RiiyxAM+WRNxCZJ0jJ plXEhyAODagK6mFBXnG1o 1GaTeBoH2JZqk M1QzUICrlnzmTy97iX4vK mTmNmO0FXejL2MbtsE9GH IeiRXrHHvzGJD8K86au6Q 5WNPsFYWwIIF4 aIS3mW4wpAymisdugQOpq DsgdmVydGljYWwtYWxpZ2 86YVExxAvrPbU1SHvdFJC hEK95AY43sLNf k9N1kRS8W3MnSVEijzgsl kbqdCG4YHRfHRVywY24yV MjCJkoRd1nd2M5h178OEK kWRMpkS53Nn7j pJsqYKGsaXYZdD2wqzngf 1wplsbiIvQcEJVzAFl3QO z0NYWulLgpPgVlEUQ4HoA 6RNK0uEDtnG6f xCmitxqirP0sIah+RmVtY RuhPX83UN10zTUwb0U0pX Q0C3LuHTBjlxiwgkclfBP 0HELrTYDubA62 uGPaIJymIc6zv8D9a699A CQlTMYkdQ17Ai8klUspRN YszRSDnJ8ksipku8miobk gIzAwMDAwMDt0 QOn7ZZWykCkoLxXfFUU1T pA4FYD5nBCddC0daSyhey sjdT1hAhm+FP4csDhlhA4 kbE9NMD9eVAGb tYHRwFXbFFX6PX23FL23I 3RyPjwvdGFibGU+PHRhYm xlIHdpZHRoPScxMDAlJyB daZebKR1nAw6a ZGVyLWNvbGxhcHNlOiBjb 0dfEKNfVQrjWO3qfMhpT1 ZkkMC2HQRtr2t4Hk31P50 xG1DkzSV+PGNv sBZ3kTE2hO3rNeSnHhC6V OnqJ309TeFerEBzUzwea5 lng3geqOe2VqAqBNQgyeH mjThpTWW2r4Oi Gg14Q05qGQarMVQuFQNtT XDhKNJocWyzkj6pcX6oYh 8+ZFXtfZM6eDH1cZ9bFiB tRjT6IThdH474 OkOveTZnAhpyF09dQ8Jrc XA+CHOuVkh5FJWqdHubYR 4szUSgYSktUe7kPHF2LzW xUsBrQZbhY6Bd SXZgfbvnfcevuAZ9HGElM NBbsM08Es7qwEepXl2hXD OaFBQ0LCRjsFJvL2OmfU2 yOiAjMDAwMDAw C4UwxLPyHQhhR963NTidU qI1IOAufoPlH8TtAHSvcY kfLiC3d0W0Kk2GxGdyoYT zLR4qMxSbVTn2 F5CeVdz5NFJpxZjiGP8zr ZNuEIzzQp3ynTvrgYooXF 8cTHZvbzwqd591CqEbk6v kIDEwcHQgVGlt AOJ5C75sq1B5RUKlILAzU ML3sCF0zP0bfZogslujfQ VmdDsgdmVydGljYWwtYWx dW946YACcmNta JnDOAtc6J7YwYyz9WWQec DblZH9miMCkQYfhWm2njF qltKieWT7lGFWknwclq78 1IwWni0pnSKBl hUMeSTpqQNZ3S08df7E6F LQpNXJuJFY7sGY7uR1bhY lnbjogbGVmdDsgdmVydGl dZCnrYQexJ050 SHQqhBeuXh9NHwd8V7LfN oj8CLZvzMluGA7mgFSiPU xbZl0okUducKqvLM0oQLB berokc123CfPz w8zuIFLdvWNaRTbsBMU3Y 50zt5T4RNNgUPGfGXY7pD L9zV8ohBscrndzrPAxxIu gdmVydGljYWwt GRumV220ZLKgxQnkZnBoe WVyOjwvdGQ+NX83uj41N9 WfGqnsUyc8MAOtUCS2sPX 9wZ8lOYHrGLal c3R5 (more content not included)... [facility] Consent for Anesthesiaon Consent for Anesthesia [id number]# 1.00CD:127 [facility] Discharge Instructionson Discharge Instructions [id number]# 1.00CD:127 [facility] IntraOperative Documentson 0 01-07-2022 IntraOperative Documents [id number]# 1.00CD:127 [facility] Main OR Intraoperative Recor don 01-07-2022 Main OR Intraoperative Record IntraOp Document Type FT Summary Primary Physician: Dallas Waller DO Finalized Date/Time: 01/07/22 13:08:23 Pt. Name: DYLAN GAMBLE Anna Marie/Sex: 1965 Female Med Rec #: [id number] Physician: Dallas Waller DO Financial #: [id number] Pt. Type: A Room/Bed: AS28 Admit/Disch: 01/04/22 06:20:44 - 01/04/22 13:00:00 Institution: Case Times FT Entry 1 Patient Times In Room 01/04/22 08:47:00 Out Room 01/04/22 10:31:00 Procedure Times Start 01/04/22 09:15:00 Stop 01/04/22 10:25:00 Anesthesia Times Start 01/04/22 08:47:00 Stop 01/04/22 10:31:00 Block Timeout w/ 01/04/22 08:38:00 Anesthesia Last Modified By: Radha Ridley RN 01/04/22 10:36:27 General Comments: PATIENT TRANSPORTED TO BLOCK ROOM VIA CART AT 0830. TIMEOUT AT 0838. BLOCK STARTED AT 0841 AND ENDED AT 0844. BLOCK PERFORMED BY DR. BLANCO. PATIENT TOLERATED WELL. HR 102, 02 98%. 01/07/22 Chart opened to review and send charges [facility] Case Attendance FT Entry 1 Entry 2 Entry 3 Case Attendee Mena Portillo DO, Jason A Wilson INFORMATION TECHNOLOGY PROGRAM MANAGER, Mane Araiza Role Performed Anesthesiologist Surgeon - Primary INFORMATION TECHNOLOGY PROGRAM MANAGER/SA Battery Mechanic Time In 01/04/22 08:47:00 01/04/22 08:47:00 01/04/22 08:47:00 Time Out 01/04/22 10:31:00 01/04/22 10:20:00 01/04/22 10:31:00 Procedure SHOULDER ARTHROSCOPY W/ SHOULDER ARTHROSCOPY W/ SHOULDER ARTHROSCOPY W/ POSSIBLE REPAIR(Right) POSSIBLE REPAIR(Right) POSSIBLE REPAIR(Right) Comments Dr. Blanco supervising Last Modified By: Khai RN, Radha Ridley RN, Radha Augustine RN 01/04/22 10:31:17 01/04/22 10:31:17 01/04/22 10:31:17 Entry 4 Entry 5 Case Attendee Khai BENDER, Radha Ordoñez RN, Mouna Tian Role Performed Motor Scooter Mechanic - Primary Motor Scooter Mechanic - Primary Time In 01/04/22 08:47:00 01/04/22 08:47:00 Time Out 01/04/22 10:31:00 01/04/22 10:31:00 Procedure SHOULDER ARTHROSCOPY W/ SHOULDER ARTHROSCOPY W/ POSSIBLE REPAIR(Right) POSSIBLE REPAIR(Right) Comments Last Modified By: Radha Ridley RN, RN, Brenda X 01/04/22 10:31:17 01/04/22 10:31:17 General Comments: CELSA HERNANDEZ - SCRAP DEALER PRIMARY ARTHREX REPS: CLAUDIO BELTRE, RACHEL ACE Perioperative Protocols FT Pre-Care Text: Implements protective measures prior to operative or invasive procedure, confirms identity before the operative or invasive procedure, verifies operative procedure, surgical site, and laterality Entry 1 Procedure(s) SHOULDER ARTHROSCOPY W/ Patient Identity Birthday, Blood Band, POSSIBLE REPAIR(Right) Verified (select at ID Band Check least 2): Consents / H and P Anesthesia Consent, Operative Site Present Verified HandP, Surgery/Procedure Marking Verified Consent Surgical Site Yes Laterality Verified Yes Verified Procedure Verified Yes Correct Patient Yes Position Verified Availability Equipment, Implant, Prep Dry Yes Verified (If Medication Applicable) PreOp Antibiotic Yes Time Out Mena Portillo Given Participants E., Dallas Waller DO, Tobias INFORMATION TECHNOLOGY PROGRAM MANAGER, Mane T, Radha Ridley RN, Barbee RN, Kimberly Y Time Out Complete 01/04/22 09:14:00 Outcomes Met? Yes Last Modified By: Radha Ridley RN 01/04/22 09:23:51 Post-Care Text: The patient is free from signs and symptoms of injury caused by extraneous objects General Comments: CELSA HERNANDEZ SCRAP DEALER PRIMARY AND ARTHREX REPS INCLUDED IN TIMEOUT Allergy Information FT Pre-Care Text: Verifies allergies Entry 1 Allergies Reviewed? Yes Allergies Reviewed Self/Patient With Outcomes Met? Yes Last Modified By: Radha Ridley RN 01/04/22 08:06:44 Post-Care Text: The patient received appropriate medication(s) safely administered during the perioperative period Surgical Procedures FT Entry 1 Procedure Description Procedure SHOULDER ARTHROSCOPY W/ Modifiers Right POSSIBLE REPAIR Surgeon Description RIGHT SHOULDER ARTHROSCOPY WITH ROTATOR CUFF REPAIR, SUBACROMIAL DECOMPRESSION Primary Procedure Yes Primary Surgeon Dallas Waller DO Start 01/04/22 09:15:00 Stop 01/04/22 10:25:00 Anesthesia Type General Surgical Service Orthopedics Wound Class 1 - Clean Last Modified By: Radha Ridley RN 01/04/22 10:36:46 General Case Data FT Pre-Care Text: Classifies surgical wound, implements aseptic technique, initiates traffic control Entry 1 Case Information OR OR 7 FT Case Level Level 4 Wound Class 1 - Clean Specialty Orthopedics ASA Class 2 Preop Diagnosis RIGHT ROTATOR CUFF TEAR Postop Same As Preop Yes Postop Diagnosis RIGHT ROTATOR CUFF TEAR Outcomes Met? Yes Last Modified By: Kinza Walker CST 01/07/22 13:07:05 Post-Care Text: The patient is free from signs and symptoms of infection Skin Assessment (Pre Procedure) FT Pre-Care Text: Implements protective measures to prevent skin/ tissue injury due to thermal or mechanical sources Evaluates for signs and symptoms of physical injury to skin and tissue Entry 1 Ski (more content not included)... Normal [facility] Preoperative Documentson Preoperative Documents [id number]# 1.00CD:127 [facility] Consent for Procedure/Surger yon 01-04-2022 Consent for Procedure/Surgery [id number]# 1.00CD:127 [facility] Consent for Treatmenton 12-18 Consent for Treatment [id number]#1 .00CD:127 [facility] H&P Updateon 01-04-2022 H&P Update [id number]# 1.00CD:127 [facility] Inpatient Patient Summaryon 01-04-2022 Inpatient Patient Summary [address] [address] [facility] Clinical Discharge Instructions PERSON INFORMATION Name: DYLAN GAMBLE PHYSICIANS Admitting Physician: Dlalas Waller DO Attending Physician: Dallas Waller DO PCP: SARAH BETANCOURT DO Discharge Diagnosis: Comment: PATIENT EDUCATION INFORMATION Instructions: Shoulder Cryocuff Patient Instructions - FT (CUSTOM); Post Op Patient Instructions - FT (CUSTOM); Nasrin Waller - After Your Shoulder Arthroscopy (Custom) Medication Leaflets: Follow up: With: Address: When: Dallas Waller [address] [place], [place] [id number] Business (1) 01/15/2022 2:45 PM Comments: Call for any problems. Keep scheduled appointment MEDICATION LIST New Medications [facility] [address] [place], [place] [id number], [phone] acetaminophen-oxycodo ne (Percocet 325 mg-5 mg Tab) 1-2 tab(s) Oral q4hr; as needed as needed for pain. Refills: 0. celecoxib (CeleBREX 100 mg Cap) 1 Capsules By Mouth 2 times a day as needed for pain. Refills: 0. docusate (Colace 100 mg Cap) 1 Capsules By Mouth 2 times a day as needed for constipation. Refills: 0. Medications to Continue with No Changes Other Medications acetaminophen (Tylenol Extra Strength 500 mg oral tablet) 2 Tablets By Mouth 3 times a day as needed as needed for pain. ibuprofen (ibuprofen 200 mg Tab) 2 Tablets By Mouth 3 times a day as needed as needed for pain. Comment: Normal [facility] Main OR PACU I Recordon 12-18 Main OR PACU I Record PACU Phase I Document Type FT Summary Primary Physician: Dallas Waller DO Finalized Date/Time: 01/04/22 11:48:06 Pt. Name: DYLAN GAMBLE/Sex: 1965 Female Med Rec #: [id number] Physician: Dallas Waller DO Financial #: [id number] Pt. Type: A Room/Bed: [place] [address] Admit/Disch: 01/04/22 06:20:44 - Institution: Case Times PACU I FT Pre-Care Text: Identifies barriers to communication and implements measures to provide psychological support Develops individualized plan of care, and ensures continuity of care Maintains patient's dignity and privacy, and maintains patient confidentiality Identifies and reports philosophical, cultural, and spiritual beliefs and values Identifies individual values and wishes concerning care Implements aseptic technique, and administers prescribed antibiotic therapy and immunizing agents as ordered Evaluates postoperative tissue perfusion Implements thermoregulation measures, and monitors body temperature Evaluates postoperative respiratory status Evaluates postoperative cardiac status Evaluates postoperative neurological status Assesses pain control, collaborated in initiating patient-controlled analgesia and implements alternative methods of pain control Verifies allergies, administers prescribed medications and solutions, evaluates response to medications Entry 1 In PACU I 01/04/22 10:33:00 Discharge from PACU 01/04/22 11:03:00 I Outcomes Met? Yes Last Modified By: Sylvia Contreras RN 01/04/22 11:47:50 Post-Care Text: The patient demonstrates knowledge of the expected response to the operative or invasive procedure The patient's care is consistent with the individualized perioperative plan of care The patient's right to privacy is maintained The patient's value system, lifestyle, ethnicity, and culture are considered, respected, and incorporated into the perioperative plan of care The patient participates in decisions affecting his or her perioperative plan of care The patient is free from signs and symptoms of infection The patient has wound/tissue perfusion consistent with or improved from baseline levels established preoperatively The patient is at or returning to normothermia at the conclusion of the immediate postoperative period The patient's respiratory function is consistent with or improved from baseline levels established preoperatively The patient's cardiovascular status is consistent with or improved from baseline levels established preoperatively The patient's cardiovascular status is consistent with or improved from baseline levels established preoperatively The patient demonstrates and/or reports adequate pain control throughout the perioperative period The patient received appropriate medication(s), safely administered during the perioperative period Acuity Level PACU I FT Entry 1 Start Time 01/04/22 10:33:00 Stop Time 01/04/22 11:03:00 Acuity Level Acuity Level I Last Modified By: Sylvia Contreras RN 01/04/22 11:48:02 Finalized By: Sylvia Contreras RN Document Signatures Signed By: Sylvia Contreras RN 01/04/22 11:48 Normal [facility] Main OR PACU II Recordon Main OR PACU II Record PACU Phase II Document Type FT Summary Primary Physician: Dallas Waller DO Finalized Date/Time: 01/04/22 13:39:38 Pt. Name: DYLAN GAMBLE Igor Thrasher/Sex: 1965 Female Med Rec #: [id number] Physician: Dallas Waller DO Financial #: [id number] Pt. Type: A Room/Bed: [place] [address] Admit/Disch: 01/04/22 06:20:44 - Institution: Case Times PACU II FT Pre-Care Text: Identifies barriers to communication and implements measures to provide psychological support and determines knowledge level Develops individualized plan of care, and ensures continuity of care Maintains patient's dignity and privacy, and maintains patient confidentiality Identifies and reports philosophical, cultural, and spiritual beliefs and values Identifies individual values and wishes concerning care administers prescribed antibiotic therapy and immunizing agents as ordered, Evaluates postoperative tissue perfusion Implements thermoregulation measures, and monitors body temperature Evaluates postoperative respiratory status Evaluates postoperative cardiac status Evaluates postoperative neurological status Assesses pain control, collaborated in initiating patient-controlled analgesia and implements alternative methods of pain control Verifies allergies, administers prescribed medications and solutions, evaluates response to medications Entry 1 In PACU II 01/04/22 11:05:00 Discharge from PACU 01/04/22 13:00:00 II Outcomes Met? Yes Last Modified By: Sandra Tejada LPN 01/04/22 13:39:36 Post-Care Text: The patient demonstrates knowledge of the expected response to the operative or invasive procedure The patient's care is consistent with the individualized perioperative plan of care The patient's right to privacy is maintained The patient's value system, lifestyle, ethnicity, and culture are considered, respected, and incorporated into the perioperative plan of care The patient participates in decisions affecting his or her perioperative plan of care. The patient is free from signs and symptoms of infection The patient has wound/tissue perfusion consistent with or improved from baseline levels established preoperatively The patient is at or returning to normothermia at the conclusion of the immediate postoperative period The patient's respiratory function is consistent with or improved from baseline levels established preoperatively The patient's cardiovascular status is consistent with or improved from baseline levels established preoperatively The patient's neurological status is consistent with or improved from baseline levels established preoperatively The patient demonstrates and/or reports adequate pain control throughout the perioperative period The patient received appropriate medication(s), safely administered during the perioperative period Finalized By: Sandra Tejada LPN Document Signatures Signed By: Sandra Tejada LPN 01/04/22 13:39 [facility] Main OR Preoperative Recordo n 01-04-2022 Main OR Preoperative Record PreOp Document Type FT Summary Primary Physician: Dallas Waller DO Finalized Date/Time: 01/04/22 09:18:44 Pt. Name: DYLAN GAMBLE /Sex: 1965 Female Med Rec #: [id number] Physician: Dallas Waller DO Financial #: [id number] Pt. Type: A Room/Bed: [facility] Admit/Disch: 01/04/22 06:20:44 - Institution: Case Times PreOp FT Pre-Care Text: Verifies consent for planned procedure, identifies individual values and wishes concerning care, includes family members in perioperative teaching Entry 1 Patient Times. In Pre Surgery 01/04/22 06:30:00 Out Pre Surgery 01/04/22 08:28:00 Outcomes Met? Yes Last Modified By: Radha Ridley RN 01/04/22 09:18:41 Post-Care Text: The patient participates in decisions affecting his or her perioperative plan of care Finalized By: Radha Ridley RN Document Signatures Signed By: Radha Ridley RN 01/04/22 09:18 [facility] Monitor Recordon 01-04-2022 Monitor Record [id number]# [id number]:127 [facility] Operative Reporton 2 Operative Report Patient: DYLAN GAMBLE Age: 56 years Sex: Female : 1965 Associated Diagnoses: None Author: Dallas Waller DO DATE OF SURGERY: 01/04/2022 SURGEON: Dallas Waller D.O. HOME SUPERVISOR: Hossein Collado CFA PREOPERATIVE DIAGNOSIS: Rotator cuff tear, right shoulder POSTOPERATIVE DIAGNOSIS: Rotator cuff tear, right shoulder PROCEDURE: 1. Examination under anesthesia, right shoulder 2. Right shoulder diagnostic arthroscopy 3. Arthroscopic rotator cuff repair 4. Arthroscopic subacromial decompression with acromioplasty ANESTHESIA: General with regional block ANESTHESIOLOGIST: Jalen Blanco D.O. and STEPHANIE Alicea IMPLANTS: Arthrex 4.75 mm biocomposite Swivelock anchor x 1 OPERATIVE INDICATIONS: Dylan is a 56-year-old [id number] female who originally injured her right shoulder at work on 04/30/2019. She has an active [facility] claim. She underwent right shoulder arthroscopy with debridement, subacromial decompression, and mini open biceps tenodesis on 08/30/2019. She was found to have partial-thickness tearing to the anterior aspect of the supraspinatus which was debrided. Unfortunately she has had continued pain and dysfunction with her right shoulder that is affecting her activities of daily living, ability to sleep at night, and quality of life. She agreed to proceed with the above procedure after discussion of the risks, benefits, complications, alternatives, and expectations. Please see office notes for further details. PROCEDURE IN DETAIL: The correct operative site was identified and marked in the preoperative holding area. The patient was administered intravenous antibiotics in accordance with SCIP protocol. She was also given 1 g tranexamic acid intravenously. The patient was transported to the regional block room and administered a regional anesthetic nerve block by the anesthesiologist. The patient was transported to the operating room, placed supine on the operating room table, and administered general anesthetic. After adequate anesthesia was obtained, the patient was placed into the beachchair position with all bony prominences well-padded. The head was secured in the padded womack. Surgical timeout was performed with all required personnel present. The operative shoulder was examined and found to have full forward flexion, abduction, internal and external rotation. No anterior or posterior instability. The operative upper extremity was prepped and draped in the usual sterile fashion. The forearm was secured in the Arthrex Trimano pneumatic arm womack. Landmarks were demarcated. The glenohumeral joint was insufflated with 20 mL of injectable saline utilizing a spinal needle inserted posteriorly. A standard posterior portal was made. The arthroscope was introduced into the glenohumeral joint. An anterior portal in the rotator interval was made with outside-in technique using spinal needle localization. A 7 mm cannula was placed at the anterior portal. A hook probe was inserted and a diagnostic arthroscopy was carried out with the findings as noted below: 1. Superior labrum and biceps: Biceps tendon was absent from previous tenodesis. Mild fraying to the superior labrum. 2. Anterior and posterior labrum: Mild fraying present but no detachment. 3. Articular surfaces: Humeral head was free of any articular changes. Glenoid and was free of any articular changes. 4. Rotator cuff: High-grade partial-thickness tear at the anterior aspect of the supraspinatus. Infraspinatus and subscapularis intact. 5. Rotator interval was free of any significant pathology. Axillary recess free of any loose bodies. No tearing of the glenohumeral ligaments. The superior and anterior labrum were debrided with a motorized shaver. A spinal needle was inserted through the area of partial-thickness tearing at the supraspinatus. An 0 Prolene suture was passed through the spinal needle and retrieved out the anterior portal to serve as a marking stitch. The arthroscope was transferred to the anterior portal and the glenohumeral joint was examined once again. Posterior structures were better visualized. There was no new pathology identified. The arthroscope was removed from the glenohumeral joint and redirected into the subacromial space posteriorly. A lateral portal was established with outside in technique using spinal needle localization. A passport cannula was placed at the lateral portal. Bursectomy was carried out with the Ayr wand. The undersurface the acromion was skeletonized with the Ayr wand. 7 mm cannulas were placed at both the anterior and posterior portals. The marking stitch was localized. The rotator cuff tear was identified and the marking stitch was removed. An accessory anterolateral portal was established with outside in technique using spinal needle localization. Acromioplasty was performed with the arthroscopic bur. The supraspinatus tear was prepared with an elevator. Soft tissue was cleared from the greate (more content not included)... [facility] Comment on above: Result Comment: Elec tronically Signed By: Dallas Waller DO\.luly\Date and Time Signed: 01/04/22 16:45 EDT Operative Report SURGERY DATE: 01/04/2022 PREOPERATIVE DIAGNOSIS: Postoperative pain control requested by patient and surgeon POSTOPERATIVE DIAGNOSIS: Postoperative pain control requested by patient and surgeon OPERATION: Right interscalene block, utilizing ultrasound guidance and nerve stimulator ANESTHESIA: Local with monitored anesthesia care PROCEDURE: The patient was interviewed and examined. The anesthesia options were discussed including interscalene approach to the brachial plexus block for postoperative analgesia. The discussion included the procedure, risks, benefits, and alternatives to the procedure. The patient's questions were all answered and the patient elected to proceed with the brachial plexus nerve block for postoperative pain relief. The patient was placed on the monitors, electrocardiogram, non-invasive blood pressure machine and pulse oximetry. I.V. sedation was then administered with a total of midazolam 2 mg. The neck was prepped with ChloraPrep and sterilely draped. The anatomy was identified by ultrasound and then under ultrasound guidance and concomitant use of a nerve stimulator, the brachial plexus was identified with a 25 gauge 1 3/8 inch Stimuplex needle. Loss of twitch was observed at 0.5 milliamps. After attempted aspiration for blood, air and cerebrospinal fluid, a solution of an equal mixture of Naropin 0.5 and Xylocaine 2% containing 3 mg of Decadron, total volume of 18 mL was slowly injected with frequent aspirations without signs or symptoms of either intravascular or intrathecal injection. The patient tolerated the procedure well. There were signs and symptoms of a block within minutes after completion of the procedure. The patient then proceeded to undergo general anesthesia for the proposed procedure. Nikkie Dailey Jr. Dictated: 01/04/2022 [id number] Transcribed: 01/04/2022 [facility] Comment on above: Result Comment: Elec tronically Signed By: Link Blanco JR, DO\.br\Date and Time Signed: 01/04/22 12:57 EDT Outpatient Surgery Discharge Instructionon 01-04-2022 Outpatient Surgery Discharge Instruction [address] [address] Patient Discharge Instructions PERSON INFORMATION Name: DYLAN GAMBLE Date of : 1965 Current Date: 01/04/2022 10:40:47 PHYSICIANS Admitting Physician: Dallas Waller DO Discharge Diagnosis: ROHAN GAMBLENDA Igor has been given the following list of follow-up instructions, prescriptions, and patient education materials: IF UNABLE TO CONTACT YOUR PHYSICIAN AND YOU FEEL IT IS AN EMERGENCY, GO TO THE NEAREST EMERGENCY ROOM OR CALL 911 MARC Sharma RHONDA J, have received the attached patient education materials/instruction s and have verbalized understanding: May we do a follow up call? Yes No I was present when discharge instructions were given Patient Signature Date Clinican/Nurse Signature Date Follow up: With: Address: When: Dallas [place] [address] [facility] (1) 01/15/2022 2:45 PM Comments: Call for any problems. Keep scheduled appointment Pharmacy Information: You may receive a survey from Dmit[facility] asking you to rate your care experience. Your feedback is important and will help us understand what we do well and how we can improve the quality of care we provide to you, your loved ones and our community. It?s an honor to serve you. Thank you for choosing [facility] HERE ARE THE MEDICATION CHANGES THAT OCCURRED DURING YOUR HOSPITAL STAY New Medications [facility] [address] [place], [place] [id number], [phone] acetaminophen-oxycodo ne (Percocet 325 mg-5 mg Tab) 1-2 tab(s) Oral q4hr; as needed as needed for pain. Refills: 0. celecoxib (CeleBREX 100 mg Cap) 1 Capsules By Mouth 2 times a day as needed for pain. Refills: 0. docusate (Colace 100 mg Cap) 1 Capsules By Mouth 2 times a day as needed for constipation. Refills: 0. Medications to Continue with No Changes Other Medications acetaminophen (Tylenol Extra Strength 500 mg oral tablet) 2 Tablets By Mouth 3 times a day as needed as needed for pain. ibuprofen (ibuprofen 200 mg Tab) 2 Tablets By Mouth 3 times a day as needed as needed for pain. PATIENT EDUCATION INFORMATION Instructions: [place], [place] [facility] AFTER YOUR SHOULDER ARTHROSCOPY 1. Diet: Begin with a liquid diet and advance to your normal diet as tolerated. 2. Activity: You may remove your sling for bathing and to perform gentle range of motion exercises for the hand, wrist, and elbow. Bend and straighten your elbow and wrist several times per day to minimize stiffness. Keep your elbow in close to your side when performing these exercises. Do not move your shoulder until instructed by your surgeon. Swelling after surgery is normal and this will gradually decrease over time. All sports activities are discouraged, at least until your first post-operative visit at which time we will discuss how and when to resume sports. 3. Driving: Driving is legal. If you are involved in an accident, you must be able to prove that you maintained full control of your vehicle. For this reason, it is advised that you do not drive until your strength returns. You should not operate a vehicle or heavy machinery if you are taking narcotic pain medication. 4. Pain: If pain persists despite rest, elevation, and medication, contact your surgeon. You will be given a prescription for pain medications prior to leaving the hospital. Please inform us of any known drug allergy. If you have any problems with the medication, it should be discontinued and our office notified. The sensation of splashing of fluid inside the joint is not cause for concern. It represents residual fluids from surgery and they will be absorbed. Elevation of the arm and application of an ice pack will minimize swelling and discomfort in the first 48 hours after surgery. 5. Bandage: Soft compression dressing has been applied to your shoulder. This dressing should be comfortable and absorb any leakage of fluid or blood from your operated shoulder. Although the dressing may become moist or blood stained, this is not usually a cause for concern. If this persists, notify your surgeon. You may remove the dressing 48 hours after your surgery. If you have a bandage in your armpit, leave this in place until follow up. Apply betadine and band-aids to the small incisions once or twice daily as needed. 6. Incisions: The portals of entry may be sore and develop bruising over the next severa (more content not included)... [facility] Patient Education - Texton 0 01-04-2022 Patient Education - Text [place], [place] [facility] AFTER YOUR SHOULDER ARTHROSCOPY 1. Diet: Begin with a liquid diet and advance to your normal diet as tolerated. 2. Activity: You may remove your sling for bathing and to perform gentle range of motion exercises for the hand, wrist, and elbow. Bend and straighten your elbow and wrist several times per day to minimize stiffness. Keep your elbow in close to your side when performing these exercises. Do not move your shoulder until instructed by your surgeon. Swelling after surgery is normal and this will gradually decrease over time. All sports activities are discouraged, at least until your first post-operative visit at which time we will discuss how and when to resume sports. 3. Driving: Driving is legal. If you are involved in an accident, you must be able to prove that you maintained full control of your vehicle. For this reason, it is advised that you do not drive until your strength returns. You should not operate a vehicle or heavy machinery if you are taking narcotic pain medication. 4. Pain: If pain persists despite rest, elevation, and medication, contact your surgeon. You will be given a prescription for pain medications prior to leaving the hospital. Please inform us of any known drug allergy. If you have any problems with the medication, it should be discontinued and our office notified. The sensation of splashing of fluid inside the joint is not cause for concern. It represents residual fluids from surgery and they will be absorbed. Elevation of the arm and application of an ice pack will minimize swelling and discomfort in the first 48 hours after surgery. 5. Bandage: Soft compression dressing has been applied to your shoulder. This dressing should be comfortable and absorb any leakage of fluid or blood from your operated shoulder. Although the dressing may become moist or blood stained, this is not usually a cause for concern. If this persists, notify your surgeon. You may remove the dressing 48 hours after your surgery. If you have a bandage in your armpit, leave this in place until follow up. Apply betadine and band-aids to the small incisions once or twice daily as needed. 6. Incisions: The portals of entry may be sore and develop bruising over the next several days. The bruising eventually resolves and does not require any special care. Do not apply creams or lotions to your shoulder. Your portals will heal well on their own. 7. Bathing: You may shower 48 hours after surgery. Bathing or soaking in water should be avoided until your first post-operative visit. 8. Precautions: If you develop fever (101 degrees or above), increasing pain (not relieved by rest, elevation, ice, and medication as prescribed), redness or swelling in your shoulder or arm, please contact the office or the hospital. If you notice increased drainage from the operative portals after the third day, this should also be reported. 9. Return Visit: Your first post-operative follow-up appointment is generally between 7 and 14 days after discharge from the hospital. You will be given an appointment card with your appointment information. Do not hesitate to call the office or the hospital if any problems or questions arise before your appointment. Dallas Waller, DO [facility] [address] [place] [id number] Reviewed: [facility] Progress Note-Physicianon Progress Note-Physician Patient: DYLAN GAMBLE Age: 56 years Sex: Female : 1965 Associated Diagnoses: None Author: Link Blanco JR, DO Postoperative Information Post Operative Note: Post Anesthesia Care Unit. Anesthetic utilized: General, Monitored anesthesia care. Health Status Allergies: Allergic Reactions (Selected) No Known Allergies Current medications: (Selected) Inpatient Medications Ordered Lactated Ringers IV Miracle 1000 mL 1,000 mL: 1,000 mL, IV, 150 mL/hr, Routine, Start date 01/04/22 7:15:00 EDT, 6.7 hour(s), Total volume (mL): 1,000, 121 kg, 2.39, m2 Percocet 325 mg-5 mg Tab: 1 tab(s), Tab, Oral, q6hr PRN Pain 4-7 for 5 day(s), Stop date 01/09/22 8:46:00 EDT, Routine, Start date 01/04/22 8:47:00 EDT Percocet 325 mg-5 mg Tab: 2 tab(s), Tab, Oral, q6hr PRN Pain 4-7 for 5 day(s), Stop date 01/09/22 8:46:00 EDT, Routine, Start date 01/04/22 8:47:00 EDT Prescriptions Prescribed CeleBREX 100 mg Cap: 100 mg = 1 cap(s), Oral, BID, PRN for pain, # 60 cap(s), Refills(s) 0, Pharmacy: [facility], 170, cm, 12/20/21 13:31:00 EST, Height/Length Dosing, 121, kg, 12/20/21 13:31:00 EST, Weight Dosing Colace 100 mg Cap: 100 mg = 1 cap(s), Oral, BID, PRN for constipation, # 20 cap(s), Refills(s) 0, Pharmacy: [facility], 170, cm, 12/20/21 13:31:00 EST, Height/Length Dosing, 121, kg, 12/20/21 13:31:00 EST, Weight Dosing Percocet 325 mg-5 mg Tab: See Instructions, as needed for pain, 40 tab(s), Refill(s) 0, 1-2 tab(s) Oral q4hr, [facility], 170, cm, 12/20/21 13:31:00 EST, Height/Length Dosing, 121, kg, 12/20/21 13:31:00 EST, Weight Dosing Documented Medications Documented Tylenol Extra Strength 500 mg oral tablet: 1,000 mg = 2 tab(s), Oral, TID, PRN as needed for pain, Refills(s) 0, Pain ibuprofen 200 mg Tab: 400 mg = 2 tab(s), Oral, TID, PRN as needed for pain, Refills(s) 0, Pain Problem list: All Problems Back pain / SNOMED CT 981221333 / Confirmed Tear of right rotator cuff / SNOMED CT 1146830069 / Confirmed right Resolved: Hx of malignant melanoma / SNOMED CT 159321326 Resolved: Basal cell carcinoma (BCC) / SNOMED CT 178350217 Physical Examination Intake and Output Denies significant n/v and is tolerating p.o. Vital Signs (last 24 hrs) Last Charted Temp Oral 36.5 DegC (JAN 04 12:15) Resp Rate 19 br/min (JAN 04 11:00) SBP H 146mmHg (JAN 04 12:15) DBP 83 mmHg (JAN 04 12:) SpO2 98 % (JAN 04 12:) Pain assessment: Pain Assessment 01/04/2022 12:15 EDT Preliminary Pain Scale 2 01/04/2022 12:15 EDT Pain Symptoms Self Report Yes, able to self report Primary Pain Location Shoulder Primary Pain Laterality Right Primary Pain Quality Aching Patient Preferred Pain Tool Numeric rating Numeric Pain Scale 2 Numeric Pain Score 2 01/04/2022 11:07 EDT Preliminary Pain Scale 0 01/04/2022 11:07 EDT Pain Symptoms Self Report No, able to self report Primary Pain Location Shoulder Primary Pain Laterality Right Patient Preferred Pain Tool Numeric rating Numeric Pain Scale 0 = No pain 01/04/2022 11:00 EDT Pain Symptoms Self Report No, able to self report Numeric Pain Scale 0 = No pain Numeric Pain Score 0 01/04/2022 10:33 EDT Pain Symptoms Self Report No, able to self report Numeric Pain Scale 0 = No pain Numeric Pain Score 0 Numeric Pain Score 0 01/04/2022 6:40 EDT Preliminary Pain Scale 8 . Respiratory: Adequate air exchange with moravian of preoperative function.. Cardiovascular: Cardiovascular function is stable and has returned to preoperative levels.. Neurologic: Pt has returned to preoperative baseline.. Review / Management Condition: Stable. Assessment Anesthetic outcome No anesthetic complications noted. Plan Transfer/ Discharge: Patient can be discharged from PACU when criteria met. Condition good. [facility] Comment on above: Result Comment: Elec tronically Signed By: Link Blanco JR, DO\.br\Date and Time Signed: 01/04/22 15:12 EDT Progress Note-Physician Patient: DYLAN GAMBLE Age: 56 years Sex: Female : 1965 Associated Diagnoses: None Author: Link Blanco JR, DO Postoperative Information Post Operative Note: Post Anesthesia Care Unit. Anesthetic utilized: General, Monitored anesthesia care. Health Status Allergies: Allergic Reactions (Selected) No Known Allergies Current medications: (Selected) Inpatient Medications Ordered Lactated Ringers IV Miracle 1000 mL 1,000 mL: 1,000 mL, IV, 150 mL/hr, Routine, Start date 01/04/22 7:15:00 EDT, 6.7 hour(s), Total volume (mL): 1,000, 121 kg, 2.39, m2 cefazolin additive + Premix Sodium Chloride 0.9% 100 mL: 3 gram = 100 mL, Soln-IV, IV Piggyback, PREOP, Routine, Start date 01/04/22 7:15:00 EDT, 200 mL/hr, Infuse over 30 minute(s) famotidine 10 mg/mL IV Miracle: 20 mg = 2 mL, Soln-IV, IV Push, Once, Stop date 01/04/22 8:00:00 EDT, Routine, Start date 01/04/22 8:00:00 EDT, 01/04/22 7:15:00 EDT Documented Medications Documented Tylenol Extra Strength 500 mg oral tablet: 1,000 mg = 2 tab(s), Oral, TID, PRN as needed for pain, Refills(s) 0, Pain ibuprofen 200 mg Tab: 400 mg = 2 tab(s), Oral, TID, PRN as needed for pain, Refills(s) 0, Pain Problem list: All Problems Tear of right rotator cuff / SNOMED CT 6223810231 / Confirmed right Resolved: Hx of malignant melanoma / SNOMED CT 313920322 Resolved: Basal cell carcinoma (BCC) / SNOMED CT 423545302 Physical Examination Intake and Output Denies significant n/v and is tolerating p.o. No qualifying data available Respiratory: Adequate air exchange with moravian of preoperative function.. Cardiovascular: Cardiovascular function is stable and has returned to preoperative levels.. Neurologic: Pt has returned to preoperative baseline.. Review / Management Condition: Stable. Assessment Anesthetic outcome No anesthetic complications noted. Plan Transfer/ Discharge: Patient can be discharged from PACU when criteria met. Condition good. [facility] Comment on above: Result Comment: Elec tronically Signed By: Lnik Blanco JR, DO Progress Note-Physicianon Progress Note-Physician Patient: DYLAN GAMBLE Age: 56 years Sex: Female : 1965 Associated Diagnoses: None Author: Link Blanco JR, DO Preoperative Information Anesthesia history: Patient History: Pt./ family denies any personal or family hx of problems/difficulties with anesthesia.. Re-eval prior to induction: Inital eval reviewed: No significant interval change, NPO 10 hours.. Review of Systems Constitutional: See nursing assessment.. Cardiovascular: Cardiac risk assessment performed. Pt. denies any significant change in their cv hx.. Respiratory: Pt. denies any signicant change in their respiratory status.. Neurologic: Pt. denies any acute neurological changes.. Health Status Allergies: Allergic Reactions (Selected) No Known Allergies, Allergies (1) Active Reaction No Known Allergies None Documented Current medications: (Selected) Inpatient Medications Ordered Lactated Ringers IV Miracle 1000 mL 1,000 mL: 1,000 mL, IV, 150 mL/hr, Routine, Start date 01/04/22 7:15:00 EDT, 6.7 hour(s), Total volume (mL): 1,000, 121 kg, 2.39, m2 cefazolin additive + Premix Sodium Chloride 0.9% 100 mL: 3 gram = 100 mL, Soln-IV, IV Piggyback, PREOP, Routine, Start date 01/04/22 7:15:00 EDT, 200 mL/hr, Infuse over 30 minute(s) famotidine 10 mg/mL IV Miracle: 20 mg = 2 mL, Soln-IV, IV Push, Once, Stop date 01/04/22 8:00:00 EDT, Routine, Start date 01/04/22 8:00:00 EDT, 01/04/22 7:15:00 EDT Documented Medications Documented Tylenol Extra Strength 500 mg oral tablet: 1,000 mg = 2 tab(s), Oral, TID, PRN as needed for pain, Refills(s) 0, Pain ibuprofen 200 mg Tab: 400 mg = 2 tab(s), Oral, TID, PRN as needed for pain, Refills(s) 0, Pain, Medications (3) Active Scheduled: (2) ceFAZolin + Premix Sodium Chloride 0.9% Diluent 100 mL 3 gram 100 mL, IV Piggyback, PREOP famotidine 10 mg/mL IV Miracle [F] 20 mg 2 mL, IV Push, Once Continuous: (1) Lactated Ringers 1,000 mL 1,000 mL, IV, 150 mL/hr PRN: (0) Problem list: All Problems Tear of right rotator cuff / SNOMED CT 2283156250 / Confirmed right Resolved: Hx of malignant melanoma / SNOMED CT 473128602 Resolved: Basal cell carcinoma (BCC) / SNOMED CT 894709135, Active Problems (1) Tear of right rotator cuff Histories Past Medical History: No active or resolved past medical history items have been selected or recorded. Family History: No family history items have been selected or recorded. Procedure history: Arthroscopy of shoulder ([id number]) on 08/30/2019 at 54 Years. Comments: 08/30/2019 20:28 OUSMANE - Gaurang BENDER, Danay A Right ACDF neck in 1987 at 23 Years. Carpal tunnel release ([id number]). Comments: 08/13/2019 9:41 EDT - Sarah Cuevas RN bilateral excision of melanoma right leg. excision of basal cell from above eye. Laparoscopic cholecystectomy ([id number]). Social History Social & Psychosocial Habits Alcohol 08/13/2019 Risk Assessment: Denies Alcohol Use Substance Abuse 08/13/2019 Risk Assessment: Denies Substance Abuse Tobacco 08/13/2019 Risk Assessment: Denies Tobacco Use . Physical Examination No qualifying data available Airway: Normal oral/pharyngeal anatomy.. Respiratory: Adequate air exchange.. Cardiovascular: Adequate perfusion and function. Review / Management Results review: No qualifying data available . Plan [place] [employer] (ASA) physical status classification: Class II. Anesthetic Preoperative Plan Anesthesia: General. , Regional Interscalene Block. Anesthetic plan, risks, benefits, and alternatives discussed with the patient and/or family. Pt. and/or family present and agree to proceed as planned.. Discussed the importance of abstaining from tobacco products, and offered counseling if desired. Normal [facility] Comment on above: Result Comment: Elec tronically Signed By: Link Blanco JR, DO.br\Date and Time Signed: 01/03/22 19:34 EDT Coding Summary.on 01-02-2022 Coding Summary. CD:[id number] G h0bWw+PGhlYWQ+KP6JXEE dW43zgFXttN9HG5aWAJ0L TIHECZOQZN0NWH5ptPF7B UgsT9HvfzTw JujxnYTnPM29JCy0IAG3v TzeCVmzyS2sqXXjS2k9Nz YmZK19qQ47DBsmAXYoDyX 3LjZpbjsgbWFy W5gtReNkpVDoRyj+PHRhY mxlIHdpZHRoPScxMDAlJy QubPuhHC7pTx2gJJHjZIL vbGxhcHNlOiBj e9msEUMtZKgvCA4udEuxQ 6WvwNP3MSJnv8r8Ra96vU I+MYZaZLH4eRzvKMknj91 8ErWqc7vcKLH5 kAVlHYvbGWM4R35ez5V4V XAcXFQqLUS9xCZ0wJ5xzH goewrhP7FotHLmRjZ5KVB 0cDMjwC6ctCkc gzxbzF2lYpm+B52KGD9MY FBMBQ7GJcf4N9SjLncyjG I+EC69FIDrOE21uAKraHS zw3hgwKi4RvHx NCXuEWS7jSsjQAajv2RlU CHdT44zsZDzf1U5SYZgbU lsvDMcXxKzxWK4xM7iZCn xikffe3nyzdzf Llcuc1bqmr18mS73V75hB DntKJCwWUU6CWArYNDkcC rszl5uuY8bYr4+OKeax1i dh5kclLo0HzHw REXgpmIbcMrwYED0a0HzI m11B3LqmEabu7MaFdn1oc 04lWCzz3F0iJN4KHhqRKG ngC8lGXciPhG5 FUDhGbZsxX53sDLpXRocE j7ypQojdEdcDM0eJGRopd iyHEJqjQ0jDRMouZNkuRv iYP6sWECeqorh g031WdCpKWP2HMYrsVFoY 7KrxT2nXjLyXOYyQKCaA6 AhbSCiKWhtT688MJmkGnI 4XOGdfcDoU2Og LPKlgXriBoP2w3H6Yi8Kp 7DrjavwTJO6RWhhRODjJy B0JmLwUeQ6M0XlKos6GMI dxAinQV4xY0Km JCSoozspfhcirYH2PEIwA BVihB41hKGqJVplGb2rs8 G8t399UZUlVUJrfA64Bu3 udDogMTBwdCBU cE9uhzryw0hkwnvnXcYrW QToUNv3VWq2WNMpvAkrBb EoVRU7YtL1WTA4eFHakO9 jwHhxmphvcB1v Oyc+Z97xnU2nFLT5TAD3s mndEWXdwiWeEZ03PS03X7 RyPjwvdGFibGU+PGRpdiB tkRqbGL3sYgBq q1xrr1CqNGfsN2BaRTWbM OkrKuv1HDRkPRJ9xJV6cC 4hAVQxEEpwy9W0zBW2D2S xjzZtne9ra6cc ACZwBYopM27xgZMho2L1Y RAxbKR9ROTocHcwHtWdtW 93Oyc+ZYIunMdyh8TiJjv ig8psl7dcoDg0 UfYuWTXrupQaiEeaEHQ9u 2UcFz24V45pEVulHMZmVP SvCZKuIJPrmLfofw8vdW8 wIi8+PGNvbCB3 qCR0iY5nMLSsZoQ7MHaaZ 684FgSraLQsUsmay2mue2 kbdPa8ZoBbEWVqjtRioGr mIAX5c3LbPv35 Y66fMKsaUJOjTLZpOLDjP SRryMghtx4siU9fBx0+PC 0eo8bqgr61pG51dJH+PHR rNSO4lAepEZme NOKinF8cPZhcErE3ETTcR eGtqC83hQJlJNqvSs1lcH ktbLbiPO5uDIBhcykav81 1SdBak5baPOQe kLLuYYphHFH4A81kx7M9V TNsVXFaYQV8iGK9rY2eyI lnbjogbGVmdDsgdmVydGl qBOvoRAvjY503 IHRvcDsnPlBhdGllbnQgT oTlGYt0A2FjJfx5DFHjmR wySF3gvEJgZFtrVk0rfYd ojKbvYD4fQCRj jsuxc855TmDjp8xrDNXsl VVjYEmqBKF4N52ku8L5RU LgVPWmHBP6hPV7wG8iwHn nbjogbGVmdDsg kfGlwWuvBGfyJKmmF901G HRvcDsnPkJpcnRoIERhdG K1ZY18VQ44uRMzc3P9bQU 2U5WmNZGkigep hhsahEI6LAPfTAJifA16G e9mlQhlSe7oHPOgECG9HE XvqJNfP4PjvX8fVbJrORI uAJTxP9EzsOVp ZXqvL205NOmpBvO6IZTes qSuX7AgKZMrcDfjQfA6j0 R4Zr5EB0X8ZB77PB00zUI jm1D6hQH9K8Qd TMMxwvzcfsiguOA3ATUzB NJvsH85Sb1ukGmhHm0bFV LpZOF5RQPdyNVfS1PmaW9 yOiAjMDAwMDAw U6JcoMMfTYbrL511MFzlI nW0XGLadzOvX6UkHHElnF ssOjJ0j1G3Zj0QPEy1FU1 6ZF68jDBpw4K6 vCF4D9OyVNKyxoevzvlyx IZ8NURsMWRguG85Uc5iqK hvWg3tVWNnQHB3YLDxfYY dW4NrcN1lSiDl ONZaKSFzL3OxkLRfEPujV 039UAkuVaF2WMImtcCmW4 OlVRNgwRsmTrT9l7U3Ao6 DZXSsDS70CHM9 iFN6HA35JI83G4RjVchty GFibGU+PHRhYmxlIHdpZH RoPScxMDAlJyBzdHlsZT0 gBp3gIUSuXKXe kVadgEQyTeEpp3uvDLKjW FihNW3fyDsbD1WggJU5DG Lpb8w7Wy86X72zB0KyzYO +UEElhTO1lCM9 nI1gRoLdWiH0NUbuI140N mUqfNLbOujar7hhi2apmD x2PpD2KKMmhqGnwHbvHVX 6f6QtRf07B53n IHdpZHRoPSIxNSUiIHZhb Pbqyd8vcN2pFw1+PGNvbC S2vHD5hY7mKzUlOxB9GIu jV325GyFumGBm Cyfdl2sug7mfnIf4OoRnL UIfilGstDjoFUD4x3SzUj 52M0RlqWtou0BqQdj6ua7 0nRWdw0G3cKM7 X0ThQMTweyycoETkkLdwY X8dFDThclhcQTKpjW5oDN MiU6q7KhUdPwO1RDfpY1Q hdpP4BJDoiXUp DQirKSH3U42ln6A9XSVtU XIeIQA1sIT5rO1mtHhslv ogbGVmdDsgdmVydGljYWw rEYrmI175CDEh tCobXULhbL2oSPTbeHQij DjaSE3fUYRodhreQobKYM oUMwCzEZTQU14LEVREPH0 6MY60eEWms9O8 lUC2A2WyQHUnbvatprpzk ZY1YBQvEMIfhQ90nZQfLI joEc0di1L1z305QCOqMWE bqP59Vd3nvNdd NVUxbAOJiL9nkhcjv6ate svyNaTwICKcLVz3DFv1RT MjdAdrAwMuGUD3ZnV7NQP 8cJIzvG6snFas drufjG1xOyj+MTAvMTIvM Sz0PptqhBK+MWQxQOB1sQ rlPNumDZHcgS8jULToT4s 8DoRoSjU3AUqs I4BkZFUeycgmWk75hK7lA uWtVpU1VUweJ7QxogX6WN DnsCVxZEyaNPI0Y66iu9W 7NBXsRROnHAY2 wCM3aK9wrWgfnlvqdQUuc DsgdmVydGljYWwtYWxpZ2 98OALvyHfhGtL4FSbpEIN zFN42AB39rHGp x8Q2eTB3O7WoHXXpnkidb adufHE6EXVvYNDfuR83vF WoIPynCu1sb8G1r148JMH lUQDsgO24Wm8r fWqgSJWatYJVhH4kgtwbq 7eoinbmSvPcTGRhYXh8IE v6UEFouEdiBdUfHRJ3KhT 7TJT4oKPvdV8j fEimcijarR2iWkp+RmVtY BcrIU38SW02bQIog8J7nN A0J1SdQEJcgyvcmitetKG 6UTIvOZJadK47 nPWdYFhpJz7uf6G2w152G GIgQVIhzL13Oh5viQahBG JrsLNFwB4ntskuf7gitkf gIzAwMDAwMDt0 DNf0KUPkcKgsWhCvNZK5O rK5RRR2oWKwgG7yjWbzgi qjxY0mFcp+UmVjdXJyaW5 jFM65DA21D5Zj PjwvdGFibGU+PHRhYmxlI HdpZHRoPScxMDAlJyBzdH vrWY9hMd8rLIZuOZDvmZy amWHrGtNlg5hc PUTnUXqoBM8okAqzB8Wou WS3REGyc3b5Yz77N96jS3 JvdXA+NGYnfDR8gAB2yC1 oOiUcMkA0HYkp T232YwCvmFWnMhazo0sry 1eocRy2PiXkSMRejlIoeX jhUTJ2n8XaLz33G09nIHu pZHRoPSIyMCUi FMUndWzvex9naU0qHp3+P AOinCD0rYR2aD6hXyIvMe Y8WGhdM487XaVxlBQsXsv kJ67jX3QzmIU+ XKXfWpz3XWHqcWonAT0wp RQaZYnbFn2tUNP2CbTjYw IfZPhdY9RuXOLkvcpyhpr lsPD2ZPLdYJDg tJ76Ye9fkQcpSp3cELNwL JX8FGJmfTSeO5IgvF0mUw EoYNCxUVBtJ5BnsMThBHr oG048LEonXfD4 CEDcamSsC4TfGHPnoIqdI cP7g4H3Ph4WdBzbtUAbKK 4cBvGrTWa6N8NxHqm0EXM qnRzwRT2hyENs XIlsSb1xfNgxlDwoCG3fW NHdjelyk013YwIpb6vnMQ SocFSmVSodNWB3S11ct9E 1PAVsOMApYNF0 tAX3bQ5dxTynllpojSDkj DsgdmVydGljYWwtYWxpZ2 05RBAsaChjWtABFdm3A4G uSmp5MURmbXcy LJ9slLOsAFcmKp9hzHdcd EeoMI3gEFMzewqej073Xg Hjy5twYPVawAIjCIglQAS 8W07ro0Q3YLCo SILzECU5mTC8kK2juPxgs jogbGVmdDsgdmVydGljYW boTZinJ542GKMciRidHy6 IUkz0Q0IfUau0 KSWmhCzxUG2akUIpAFpjZ u4clFsgmIuvZG8hPSHwax qpd109XsXwo2hxHAWfqSQ rAAxmMDL2T49s z6A1ZQWaKTQcTUK0bCT5c S0rcWrupfvxpJEikNqasd IowXqvFSqsPSayD390WGM vcDsnPlBheWVy OjwvdGQ+NE17on39Z0XcJ nfcCxs8CLNgHLQ0nMG0kK 0kKGXwTFubs0J0iSN5M0P ajvXbbi4mu0vd YXBz (more content not included)... Normal [facility] COVID-19 ([facility])on 12-31-2021 SARS-CoV-2 (COVID-19) RNA CRISTO+probe Ql (Resp) Not detected Normal Not Detected [facility] Comment on above: Result Comment: This test result should be correlated with clinical presentations and medical history by a healthcare provider to determine its clinical significance. This assay was performed by a reverse transcriptase real-time polymerase chain reaction (rt PCR) method on the Linkago[employer] system. This test has been authorized only for the detection of nucleic acid from SARS-CoV-2, not for any other viruses or pathogens. This test has not been FDA cleared or approved. This test has been authorized by FDA under an Emergency Use Authorization (EUA). This test is only authorized for the duration of time the declaration on that circumstances exist justifying the authorization emergency use of in vitro diagnostic tests for detection and/or diagnosis of COVID-19 infection under section 564 (b) (1) of the Act, 21 U.S.C. 360 bbb-3 (b) (1), unless authorization is terminated or revoked sooner. Performed By: #### 2 [id number] ####[place] [address] SARS-CoV-2 (COVID-19) RNA CRISTO+probe Ql (Unsp spec) Pass Normal Pass [facility] Comment on above: Performed By: #### 2 [id number] ####[place] [address] Specimen source Nom (Unsp spec) Nasal Normal [facility] Comment on above: Performed By: #### 2 [id number] ####[place] [address] ADMITTED TO INTENSIVE CARE UNIT FOR CONDITION OF INTEREST:FIND:PT: NO Normal [facility] Comment on above: Performed By: #### 2 [id number] ####[place] [address] EMPLOYED IN A HEALTHCARE SETTING:FIND:PT: NO Normal [facility] Comment on above: Performed By: #### 2 [id number] ####[place] [address] FIRST TEST FOR CONDITION OF INTEREST:FIND:PT: Unknown Normal [facility] Comment on above: Performed By: #### 2 [id number] ####[place] [address] HAS SYMPTOMS RELATED TO CONDITION OF INTEREST:FIND:PT: Unknown Normal [facility] Comment on above: Performed By: #### 2 [id number] ####[place] [address] HOSPITALIZED FOR CONDITION OF INTEREST:FIND:PT: NO Normal [facility] Comment on above: Performed By: #### 2 [id number] ####[place] [address] STATUS:FIND:PT: NO Normal [facility] Comment on above: Performed By: #### 2 [id number] ####[place] [id number] [facility]:FIND:PT: NO [facility] Comment on above: Performed By: #### 2 [id number] ####[facility] [id number] [place] [address] Consent for Treatmenton 12-18 Consent for Treatment [id number] #1.00CD:127 Normal [facility] Consent for Procedure/Surger yon 12-28-2021 Consent for Procedure/Surgery [id number]# 1.00CD:127 [facility] Coding Summary.on 12-24-2021 Coding Summary. CD:[id number] G h0bWw+PGhlYWQ+QG1IIMP fD70igIBnzK0AB0oNLX8E NBVKUPWPIG4GWA3kpAA4Z JbzM0HinnLi AwxggOWuTD46HDm5DHI4n VgvGLbsoQ1yfADeZ2s0Vv BiOW07eN73HJebENNaYtQ 3LjZpbjsgbWFy D3duYcOlzELaPms+PHRhY mxlIHdpZHRoPScxMDAlJy PadLczSH5qIt4bZJVdAND vbGxhcHNlOiBj l1wmSCAtQIwnYG7bwEajP 5VhaJC9JZFvd5j6Xk23tG I+VTXcYFI3aQbsTGvxi92 1BoVyi8upHSH5 hBUcVXvgJWF7W04vn9U2T FZyRVDgAKF3xFR6bA8itS uebwnzC7PthGYnGpA3QKX 9rMScnG4ocBvu zmueoR7kLth+J40KDP1FC CMXTH1ONwa7A7ZaBmbhbW I+GU78YTFqRO23yQRecHZ rb8croZm2XdZh PZVrYIM7xXkaNRsxd7KtJ RTmJ01afNJdm9F8BGMwoA iioPXpWcSdpZV0fS6qBWc gfzvml8afinla Hfega9eiyw14cX30E46qQ EpcVIGiIOE6TMBaJPUjqP dwcz5lvK0zCh3+LPkgn2e bl2ctaMg9ThBq ITQnctQezTeiLTV0d7VjJ t97T9PmkCave5YjUgm6gk 46oTIee9V8zIU2QHjiEVH tfR4yKSkgWtF7 QNSeJxIpkJ10xRQcGBvjD e3gaMrehKhpRT2aNKPzxr khSGQusS4aMIJxfLOjdKb nCD4rHHIvwxol s708FqSyTWV6NRClqBXfS 1RahS0uPeHaFSJvTNNyL7 EcvXEbMFixC306ZQhtFxC 4WTVcydYnN5Pe CYPzsElxFiK0z8M2St2Uc 8JqafmpGDA0WJaiDMByFr X4SqFkYgA5U8ZdIhp6NJC ytKyoNL7gK7Iu CZIaivudioykrYV2TGWeJ SNtoV99jEKyCScfRi8ro8 F0s562MPOdKEBhpC13My3 udDogMTBwdCBU mO2vvkpte5ejcqmlImOlJ GLvLXt9WCb3ADKehUtlKp PqCXL9OjP4JVN1hKZzvR8 ziHcwcuyriS3v Oyc+Y70vlX8bFRM9MVY8j mepGUTlhiOqEA46UP80E8 RyPjwvdGFibGU+PGRpdiB hyRvvPZ0kTvWf r7tee2XoCZfkP2IgXYKvK NqhPgx1HBJzGXV5gFD2eN 9wOFBlEDsxt1P8lKV1L7L nxbNhvn5oa6yi BVHtJHbdP40tbLHfm4J6Z MDcfIA7HGPxfEciXmNpyW 93Oyc+QBDhgMcuy7VhYqz kj5hni9cgyZg4 BaCqYQNoubCylDlpDPX2x 5YbEk72O08vDKbwUQNrHX BkMJIiYCFclJcmzx4pnP0 wIi8+PGNvbCB3 nLN0eI8dXYKnBvM4JPrlY 079JnJrlWGzOoaah9djy3 dxpVb5YrArWBIpqcMafMc pGEV1x7RuGc21 P65jLPkiKEPhMFVeSZRsB MEqyCdokj0vpF7lPr9+PC 8pa4fovm81dM53fQO+PHR mTDD0dXqvMGbt EDOhoI3aNVxyLxB0MZLaB uOsoK19bRZmZZiuCh3moX jjuOtmCG8aYIMocyzeg01 9PoVrc3qaMPNn vGTbAGdnVDC3O31fh7X0P UGcTYPaGBP3jNI4lK4dsT lnbjogbGVmdDsgdmVydGl gEBpvDHzpG276 IHRvcDsnPlBhdGllbnQgT qTqGXr2D3AvNyx7QAQpjN muPK8zkOBpHNiqXu2czBu ojZrjXZ0nJHRs oumyi177ZoLlf7yxZFUtj JJoCSrdKPR8S93pe4N7PP JuHEAhXQH0gDN3eV0afDs nbjogbGVmdDsg vhZsuBjdUHdpLGsjE628B HRvcDsnPkJpcnRoIERhdG E4RK13EI73oYCnr6Y3hSS 3J4DuVNMamrfj famrdHZ3OJAcILQciW94T y4phFliXb1oRLUfMYQ0YI CowVIpS4QhxY0tHzFrMYZ rBCTqB0AtfHOw BGhvN806ZBziNaL1UAMhl jRpW2SnELLttOdfOwO3d0 O1Gz1KV4C9BT68SG92yLQ ln5B1fTT7O7Mv VRVpqhphzvftlYM2IGTeJ QMxjI54Tk7pvIpfLc4dYI IlVER0CLZwnQMoC4RstW7 yOiAjMDAwMDAw B3InbSEuSWdyO287HTadT zF0GPPcunAqM5OpXYKsdP ktKzA0x2N0Kv4GRMg1TG6 2FM18lUMbz1S9 yHY9J8RsQBAbaxoindlyb LU7DJMjHCVldF11Ph8auX nqXa6aZAZqGLQ6KBOnaIB iG7TchJ9gUwVb NYNxJHTcX2MgxKBnXWdgJ 822EZubJwC9JZMxpcNmU9 IyCXYpeDqnYnS8t9T2Un4 TRDFdCA94INS7 uYK3AU69AG48Q8AyAzgst GFibGU+PHRhYmxlIHdpZH RoPScxMDAlJyBzdHlsZT0 kUi9iDKVuLSDt gZrvhRAsEqJua5dqYPRiR VzyOZ9qdKrrD8AwwQB6FJ Ifr4n3Qn76T60pG1EfdXV +OEEmwLG7sHC2 nB6nDbFfIbX4ZEweG728D zBopKViDrrfg3itu1pvqH s4MzD9SHYuniCotPclVWE 5c3ZtWv56I19i IHdpZHRoPSIxNSUiIHZhb Ptsdz9ogI5hTy0+PGNvbC D8tDP5rU0eGuYnOnO5SFs mQ650EdEexPHo Dqrdf0qlc9vblPl5PbMwP WCauoRebBubXTE3g9FiNk 42S5HqwFxil4HmLsf6cd7 2cDQye0V4fTZ6 H2UtEXNkaeuctEWfoWikB W9zIIAzyykdRTCabD3bZU RwM7t9BqIvQhP2EPkkX5A uidJ9ILZshROa IAfnHKS9A89fi7G2UDNoF JPsOOP7nYV0oU9ayBrhbw ogbGVmdDsgdmVydGljYWw pGIbrX701YQQt jQhsWWVimT0iHIOzjFLhd SobVP7cBRKdlxcaOprGMS xSJeFmEYFYN85NDAPEHG4 2WU18fWKlg3G3 zOW5D8WyQGPbviwgyrvee WX8KEDnCTOqtQ30tKRwOG wdMc3mc7V8u488LRWgKAX ccW72Cl7meUwc ZQJneRXPaO3kopjuj5blc xutTpZfOYBjPYe8QBc5CC JvdZcfDlGxDBP0ZrA2POU 9gWVdnJ0ojUve tljruG5vIle+MTAvMTIvM Sx0GocohTC+INYuUYE9sB xdJLczMULtqW2pBVYxQ0k 4DtSmIxS4IKad X6JgIBImtnpwXq02xG8zJ cLiJrN9ZXzzY7RmnuO3OA JwtGBvKYjeIMT4U02ey4T 4EKMdLMJcKKA3 kED7dE9wbDppfbhvlSPfu DsgdmVydGljYWwtYWxpZ2 94CRXakSufZgE6UTstXVC nCD13ON93rVOz u7Q2jUX9F8YpOCImbfewg nwcsPT3RXBgOEHmiG84vT CxBXqxNm7fb4B0j786UYS qQCMrjZ46Vt4n gUdbOYSqyNLXdP6dasyeq 6xrzyazLdUaDJDtFZj3UP e7IMTboSqzRdKzLIL9YiU 6YRS8aZQmsS8k eQhcoevpxF4wXnd+RmVtY NfbGB02SR46mPFsr4F8zE A7K6AjHSDtvuaqvpxfpAE 1BLTcYHMhtL78 cCErZQpeVz8vc3T9y200U KBeXAWtcD94Dr0lkIckCB IefMANsI3kuwztc2xwxnv gIzAwMDAwMDt0 QZh3OKDhbHdzQgWoFJT9A vT8MLP9xOYgwX5zaVkuds zbfH6aEss+E7R2uQE1wHE udDwvdGQ+PC90 hb59Z6WcLsvtUnf0ZHXxI EY5pDM3tX2gBMQmFEiwv8 A6fVI7V0MstoSwfd5rx3x qZATtLXwyS32p rTLfs9X3UGOzdIL8VBXvf ImvMjOpjA07Rxb+PGNvbG yrw2GkGiimh1sxe4sinVu 9IjMwJSIgdmFs nVwqYGQ1a1EgBp24N16oY HdpZHRoPSIzMCUiIHZhbG vity5eyU1dQk2+PGNvbCB 5fTA3fP4xRpJf JfA6SZahL376FaXukLGgB zdyl8zzw0cqhHg9HuXyPK UkarAzwIlvRZX8x7RzMf0 4U4WrwGslj9Ls Hzi4fn79dEIzg5F9aKZ1M 3BhZGRpbmctbGVmdDogMC 6xXBHdcvviKEKrsZ8vAQU hR0y9UmWxDmK7 XJzbQ1NrjiU1XZXjsWBxX XIokFGJyC7tfzdmz5qhfa jzElBzIFAvEAw6ODh4NQN saWduOiBsZWZ0 BoJ7HCS9nAGbiI9ttPead ovkgL9yWkc+MGv9y1tymD CwCJ9akHK9CV75MD66jND qs0P1yRI2D8Qq EBFqiujaqnvctIL9WQXrZ UGbsB49Ka9maDvvKy0iRU JwORB3OBRyvVYcD3VegS0 yOiAjMDAwMDAw E4MwoIMcOCygD538QQecA uR7NPGurlRpT1VtQXYpcQ ixKvV1h8G2Wy5ELN11DK9 9VO62cYBku6K1 cMN2I0VvMSLichrheqfex OU9HQCnDEAaxH27Ky4toN fsOd9pGGUoGDM3CQUfiXU kZ8AvtU1iTdQg FHPuZEVxN7QtbMVzKEigK 659WAhmToU3RYUgfbLdE7 FtNDComOyqFiN1u4C9Mo8 RRu21OL98VR58 cZHbq0G9lKK4Z9LuRQRkz kgjftgkoSG4TUDuKPBcmY 48Or4xxYvxBz1cUTIuBLF 4DMVktQDxV1Zk tF8rNaBcBAUwWLZrY9Sou QGbOAvcD670ZWxiNlL8IG KmllNbZ9KyAQIjxJkkFtR 7a6P5At0BZYxz odu8Y7ZlSfibsAE+PC90Y YAyAR65bAJdjXLmi7dmnH u8NfVtSRVlHVP0tSezHBz kj6HzKLLqG36f bGFw (more content not included)... Normal [facility] BUNon 12-20-2021 Urea nitrogen [Mass/Vol] 9 mg/dL Normal 5-21 [facility] Comment on above: Performed By: #### 2 544854, 4162635, 1015556, 2950220, 6855746, 46597312 ####[facility] [address] [place] [address] CBC w/Indiceson 12-20-2021 Erythrocyte distribution width (RBC) [Ratio] 14.1 % Normal 10.9-14.2 [facility] Comment on above: Performed By: #### 2 901177, 4494410, 6053700, 1688510, 5711061, 81979497 ####[address] [place] [address] Hematocrit (Bld) [Volume fraction] 42.0 % Normal 34.0-46.0 [facility] Comment on above: Performed By: #### 2 858884, 6759191, 5123876, 8940061, 4340317, 03683543 ####[facility] [address] [place] [address] Hemoglobin (Bld) [Mass/Vol] 14.6 g/dL Normal 12.0-16.0 [facility] Comment on above: Performed By: #### 2 925342, 2740548, 3689893, 4643088, 6316035, 78833036 ####[id number] MCH (RBC) [Entitic mass] 30.8 pg Normal 27.0-34.0 [facility] Comment on above: Performed By: #### 2 170714, 8769685, 2561104, 6887749, 3801696, 24870342 ####[address] [address] MCHC (RBC) [Mass/Vol] 34.8 g/dL Normal 31.4-36.0 [facility] Comment on above: Performed By: #### 2 476631, 5299393, 2414617, 6491465, 9905385, 23631620 ####[address] [address] MCV (RBC) [Entitic vol] 88.4 fL Normal 80.0-100.0 [facility] Comment on above: Performed By: #### 2 476554, 3229969, 4527423, 7023745, 2661506, 14647771 ####[address] [address] Platelet mean volume (Bld) [Entitic vol] 7.9 fL Normal 6.4-10.8 [facility] Comment on above: Performed By: #### 2 185486, 8360500, 5286971, 2732902, 6231825, 10745263 ####[address] [address] Platelets (Bld) [#/Vol] 268.0 E9/L Normal 150.0-500.0 [facility] Comment on above: Performed By: #### 2 801535, 3255191, 4691061, 8838998, 5516415, 30562964 ####[facility] [address] [place] [address] RBC (Bld) [#/Vol] 4.8 E12/L Normal 4.3-5.9 [facility] Comment on above: Performed By: #### 2 780737, 7474207, 9373915, 8082723, 7441088, 27448006 ####[facility] [address] [place] [address] WBC corrected for nucl RBC Auto (Bld) [#/Vol] 4.8 E9/L Normal 4.0-11.0 [facility] Comment on above: Performed By: #### 2 392581, 4124105, 9744283, 9401401, 0380199, 39639440 ####[address] [address] Consent for Treatmenton Consent for Treatment [id number]:127 Normal [facility] Creatinineon 12-20-2021 Creatinine [Mass/Vol] 0.9 mg/dL Normal 0.5-1.3 [facility] Comment on above: Performed By: #### 2 040867, 9338229, 5205302, 8898609, 3092679, 33015207 ####[facility] [address] [place] [address] Glucoseon 12-20-2021 Glucose [Mass/Vol] 92 mg/dL Normal 55-199 [facility] Comment on above: Performed By: #### 2 984903, 0945818, 5426216, 5458828, 8855444, 35719022 ####[facility] [address] [place] [address] Lyteson 12-20-2021 Anion gap [Moles/Vol] 14 mmol/L Normal 6-16 [facility] Comment on above: Performed By: #### 2 586887, 5706300, 0794818, 0151476, 1969763, 27239931 ####[facility] [address] [place] [address] Chloride [Moles/Vol] 103 mmol/L Normal 101-111 [facility] Comment on above: Performed By: #### 2 194751, 3069343, 0193293, 2680022, 6738935, 56795876 ####[facility] [address] [place] [address] CO2 [Moles/Vol] 27 mmol/L Normal 21-31 [facility] Comment on above: Performed By: #### 2 696423, 0129085, 4130624, 0539748, 8813259, 14990409 ####[facility] [address] [place] [address] Potassium [Moles/Vol] 4.4 mmol/L Normal 3.5-5.3 [facility] Comment on above: Performed By: #### 2 711272, 5583033, 0525300, 9716869, 2851996, 36866798 ####[facility] [address] [place] [address] Sodium [Moles/Vol] 140 mmol/L Normal 135-145 [facility] Comment on above: Performed By: #### 2 517367, 0496497, 1694814, 1258859, 6134245, 68043039 ####[facility] [address] [place] [address] XR Chest 2 Viewson XR Chest 2 Views Exam Date/Time: 12/20/2021 11:47 EST Reason for Exam: pst Report IMPRESSION: No acute radiographic abnormality. EXAMINATION: XR Chest 2 Views Clinical History: pst. Comparison: 08/13/2019. RESULT: No consolidation. No pleural effusion. No pneumothorax. Normal pulmonary vascular pattern. Normal cardiomediastinal silhouette. No acute osseous findings. FINAL REPORT Dictated: 12/20/2021 12:08 pm Eduard Mcnally MD Signed (Electronic Signature): 12/20/2021 12:08 pm Signed by: Eduard Mcnally MD Transcribed by: DEIDRE Technologist: DAVION Normal [facility] eGFRon 12-20-2021 GFR/1.73 sq M.predicted among blacks MDRD (S/P/Bld) [Vol rate/Area] mL/min/{1.73_m2} Normal >=59 [facility] Comment on above: Order Comment: Order added by Discern Expert. Result Comment: eGFR is race adjusted. AA=. Performed By: #### 2 806641, 4665372, 9209476, 9330567, 2497128, 71826315 ####[facility] [address] [place] [address] GFR/1.73 sq M.predicted among non-blacks MDRD (S/P/Bld) [Vol rate/Area] mL/min/{1.73_m2} Normal >=59 [facility] Comment on above: Order Comment: Order added by Discern Expert. Result Comment: Addiction Counselor denzel kidney disease could be indicated at eGFR's of less than 60 mL/min/1.73m2. Kidney failure is indicated at less than 15 mL/min/1.73m2. Performed By: #### 2 696710, 8245753, 0077106, 2125131, 1160873, [id number] ####[facility] [address] [place] [address] MRI SHOULDER RT WO CONon MRI SHOULDER RT WO CON Patient: DYLAN GAMBLE Exam Date: 06/02/2019 : 1965 Gender:F Ordering : [facility] Admission #: [id number] Family : Order #: [id number] CLICK HERE TO VIEW EXAM RADIOLOGY REPORT PROCEDURE: MRI SHOULDER RIGHT WITHOUT CONTRAST COMPARISON: None. INDICATIONS: Biceps tendinitis with acute right shoulder pain from lifting heavy totes TECHNIQUE: A variety of imaging planes and parameters were utilized for visualization of suspected pathology. Imaging was performed without contrast. FINDINGS: ROTATOR CUFF REGION CUFF TENDONS: Partial tear of the superior labrum without visible full-thickness tear. CUFF MUSCLES: Normal appearing muscles. DELTOID: No significant atrophy or tear. LONG BICEPS TENDON: No abnormal signal, attrition, or tear. LABRUM/BICEPS ANCHOR SUPERIOR: Suspect small tear of the anterior and superior labrum. ANTERIOR/INFERIOR: Suspect small tear of the anterior and superior labrum. POSTERIOR: No posterior labrum abnormality. CAPSULE Normal. No visible capsular laxity or thickening. AC JOINT REGION AC JOINT: Moderate osteoarthropathy with mild-moderate narrowing of the underlying coracoacromial arch. AC LIGAMENTS: Normal acromioclavicular ligament. CC LIGAMENTS: Normal coracoclavicular ligaments. ACROMION: Normal horizontal configuration. SUBACROMIAL BURSA: Mild effusion. HYALINE CARTILAGE: No visible cartilage narrowing or focal defect. OTHER BONES: Normal proximal humerus, glenoid, and coracoid. OTHER OBSERVATIONS: Negative. No other significant findings or glenohumeral effusion. CONCLUSION: 1. Partial tear of the supraspinatus tendon without visible full-thickness tear. 2. Small effusion within the subacromial bursa. 3. Moderate degenerative changes of the acromioclavicular joint. 4. Suspected small tear involving the anterior and the superior labrum. Dictated by: Lisbeth Simpson M.D. on 06/02/2019 at 16:39 Approved by: Lisbeth Simpson M.D. on 06/02/2019 at 16:44 Normal [facility] Vital Signs Date Time Vital Sign Value Performing Clinician Facility 05-25-2025 09:02-0400 Body height 167.6 cm [employer] Phone: [facility] 05-25-2025 09:02-0400 Body mass index (BMI) [Ratio] 37.61 kg/m2 [employer] Phone: [facility] 05-25-2025 09:02-0400 Body weight 105.69 kg [employer] Phone: [facility] 05-25-2025 09:02-0400 Diastolic blood pressure 82 mm[Hg] [employer] Phone: [facility] 05-25-2025 09:02-0400 Systolic blood pressure 114 mm[Hg] [employer] Phone: [facility] 05-17-2025 10:38-0400 Body height 165.1 cm Sarah Petznick DO Work Phone: [facility] 05-17-2025 10:38-0400 Body mass index (BMI) [Ratio] 39.11 kg/m2 Sarah Petznick DO Work Phone: [facility] 05-17-2025 10:38-0400 Body temperature 98.1 [degF] Sarah Petznick DO Work Phone: [facility] 05-17-2025 10:38-0400 Body weight 106.59 kg Sarah Petznick DO Work Phone: [facility] 05-17-2025 10:38-0400 Diastolic blood pressure 76 mm[Hg] Sarah Petznick DO Work Phone: [facility] 05-17-2025 10:38-0400 Heart rate 86 /min Sarah Petznick DO Work Phone: [facility] 05-17-2025 10:38-0400 SaO2% (BldA) [Mass fraction] 98 % Sarah Petznick DO Work Phone: [facility] 05-17-2025 10:38-0400 Systolic blood pressure 120 mm[Hg] Sarah Petznick DO Work Phone: [facility] 04-20-2025 11:28-0400 Body height 165.1 cm Sarah Petznick DO Work Phone: [facility] 04-20-2025 11:28-0400 Body mass index (BMI) [Ratio] 39.77 kg/m2 Sarah Petznick DO Work Phone: [facility] 04-20-2025 11:28-0400 Body temperature 98.4 [degF] Sarah Petznick DO Work Phone: [facility] 04-20-2025 11:28-0400 Body weight 108.41 kg Sarah Petznick DO Work Phone: [facility] 04-20-2025 11:28-0400 Diastolic blood pressure 96 mm[Hg] Sarah Betancourt DO Work Phone: [facility] [employer] 04-20-2025 11:28-0400 Heart rate 72 /min Sarah Betancourt DO Work Phone: [facility] 04-20-2025 11:28-0400 SaO2% (BldA) [Mass fraction] 98 % Sarah Betancourt DO Work Phone: [facility] 04-20-2025 11:28-0400 Systolic blood pressure 158 mm[Hg] Sarah Betancourt DO Work Phone: [facility] [employer] 08-06-2023 15:00-0400 Body height 165.1 cm [employer] Other [email or web address] Other 08-06-2023 15:00-0400 Body mass index (BMI) [Ratio] 42.4 kg/m2 [employer] Other [email or web address] Other 08-06-2023 15:00-0400 Body weight 115.58 kg [employer] Other [email or web address] Other 08-06-2023 15:00-0400 Diastolic blood pressure 78 mm[Hg] [employer] Other [email or web address] Other 08-06-2023 15:00-0400 Respiratory rate 18 /min [employer] Other [email or web address] Other 08-06-2023 15:00-0400 SaO2% (BldA) [Mass fraction] 98 % [employer] Other [email or web address] Other 08-06-2023 15:00-0400 Systolic blood pressure 144 mm[Hg] [employer] Other [email or web address] Other 08-23-2023 15:00-0400 Body height 165.1 cm Juan C [place] Other [email or web address] Other 06-11-2023 15:00-0400 Body mass index (BMI) [Ratio] 43.68 kg/m2 Juan C [place] Other [email or web address] Other 06-11-2023 15:00-0400 Body weight 119.07 kg Juan C [place] Other [email or web address] Other 06-11-2023 15:00-0400 Diastolic blood pressure 84 mm[Hg] Juan C [place] Other [email or web address] Other 06-11-2023 15:00-0400 Respiratory rate 18 /min Juan C Zadby Other [email or web address] Other 06-11-2023 15:00-0400 SaO2% (BldA) [Mass fraction] 100 % Juan C [place] Other [email or web address] Other 06-11-2023 15:00-0400 Systolic blood pressure 144 mm[Hg] Juan C [place] Other [email or web address] Other Encounters Encounter Date Encounter Type Care Provider Facility Start: 05-25-2025 End: 05-25-2025 Patient encounter procedure Richi Hoang DO Work Phone: [facility] Comment on above: Encounter for screen ing colonoscopy Start: 05-25-2025 End: 05-25-2025 ambulatory RICHI HOANG Not Available Start: 05-17-2025 End: 05-17-2025 Bamboo flowsheet Sarah Betancourt DO Work Phone: [facility] Start: 05-17-2025 End: 05-17-2025 Bamboo flowsheet Sarah Betancourt DO Work Phone: [facility] 230 Start: 05-17-2025 End: 05-17-2025 Office outpatient visit 15 minutes Sarah Cr Petznick DO Work Phone: [facility] 230 Comment on above: Pharyngitis, unspeci fied etiology (Primary Dx); Sore throat; Severe obesity (BMI 35.0-39.9) with comorbidity ([facility]) Start: 05-17-2025 End: 05-17-2025 ambulatory SARAH Cr PETZNICK Not Available Start: 04-20-2025 End: 04-20-2025 Bamboo flowsheet Sarah C Petznick DO Work Phone: [facility] 230 Start: 04-20-2025 End: 04-20-2025 Bamboo flowsheet Sarah C Petznick DO Work Phone: [facility] 230 Start: 04-20-2025 End: 04-20-2025 Patient encounter status Sarah Cr Petznick DO Work Phone: [facility] Work Phone: Start: 04-20-2025 End: 04-20-2025 Telephone encounter Sarah Cr Petznick DO Work Phone: [facility] 230 Start: 04-20-2025 End: 04-20-2025 Office outpatient visit 25 minutes Sarah Cr Petznick DO Work Phone: [facility] 230 Comment on above: Encounter for screen ing mammogram for malignant neoplasm of breast (Primary Dx); Dysuria; Encounter for screening colonoscopy; Herpes zoster without complication; Elevated blood pressure reading Start: 04-20-2025 End: 04-20-2025 ambulatory SARAH C PETZNICK Not Available Start: 12-13-2024 End: 12-13-2024 ambulatory Sarah Petznick DO Work Phone: [facility] Work Phone: Start: 12-13-2024 End: 12-13-2024 Discharged Recurring Sarah Petznick DO Work Phone: [facility] [place] Work Phone: Start: 11-30-2024 Registered Recurring Sarah P etznick DO Work Phone: [facility] [place] Work Phone: Start: 11-26-2024 End: 11-26-2024 ambulatory Sarah Petznick DO Work Phone: [facility] Work Phone: Start: 11-26-2024 End: 11-26-2024 Patient encounter procedure Sarah Petznick DO Work Phone: [facility] [address] Work Phone: Start: 11-02-2024 Registered Recurring Sarah P etznick DO Work Phone: [facility] [place] Work Phone: Start: 10-29-2024 End: 10-29-2024 ambulatory Sarah Petznick DO Work Phone: [facility] Work Phone: Start: 10-29-2024 End: 10-29-2024 Patient encounter procedure Sarah Petznick DO Work Phone: [facility] [address] Work Phone: Start: 09-24-2024 End: 09-24-2024 ambulatory Sarah Petznick Facility:[facility] Start: 09-24-2024 End: 09-24-2024 Patient encounter procedure Sarah Petznick DO Work Phone: [facility] [address] Work Phone: Start: 08-27-2024 End: 08-27-2024 ambulatory Sarah Petznick DO Work Phone: [facility] Work Phone: Start: 08-27-2024 End: 08-27-2024 Patient encounter procedure Sarah Petznick DO Work Phone: [facility] [address] Work Phone: Start: 02-15-2024 End: 02-15-2024 Emergency department patient visit Sarah Kendrickting Facility:[facility] Start: 08-06-2023 End: 08-06-2023 ambulatory Juan C [place] Other [email or web address] Other Start: 08-06-2023 Follow-up encounter [facility] Start: 06-17-2023 End: 06-17-2023 ambulatory Juan C [place] Other [email or web address] Other Start: 06-17-2023 Telephone encounter Juan C [facility] Start: 06-11-2023 End: 06-11-2023 ambulatory Juan C [place] Other [email or web address] Other Start: 06-11-2023 Nutrition therapy [facility] Start: 06-11-2023 Telephone encounter Juan C [facility] Start: 12-25-2022 End: 12-25-2022 ambulatory DO Sarah Charlene Work Phone: [facility] Work Phone: Start: 12-25-2022 End: 12-25-2022 Patient encounter procedure DO Sarah Betancourt Work Phone: [facility] Start: 11-21-2022 End: 11-22-2022 ambulatory Radha Diego Facility:[facility] Start: 11-21-2022 End: 11-21-2022 Patient encounter procedure Radha Diego [facility] Start: 08-09-2022 ambulatory Dallas [facility] Start: 01-04-2022 End: 01-04-2022 ambulatory Dallas Waller Facility:[facility] Start: 12-28-2021 End: 04-01-2022 ambulatory Dallas Waller Facility:[facility] Start: 12-20-2021 End: 12-21-2021 ambulatory Dallaspedro Waller Facility:[facility] Start: 12-20-2021 End: 03-31-2022 Recurring Dallas Waller [facility] Start: 06-02-2019 End: 06-03-2019 Patient encounter procedure KEYANA BECKFORD Facility:[facility] Start: 05-01-2019 End: 05-01-2019 Patient encounter procedure JEANIE SHULTZ Facility:[facility] Procedures Date Procedure Procedure Detail Performing Clinician Start: 05-17-2025 Iaadiadoo streptococ cus group a Sarahbenito Betancourt DO Work Phone: Start: 05-17-2025 STATUS COVID-19/FLU Mat gabino Kendrickting DO Work Phone: Start: 04-20-2025 Urnls dip stick/tabl et rgnt non-auto w/o micrscp Sarah Kendrickjosealy DO Work Phone: Start: 12-25-2022 SARS-CoV-2, Influenz a & RSV (PCR) DO Sarah Betancourt Work Phone: Start: 09-04-2022 Mammography Sarah Faizan ford DO Work Phone: Start: 01-04-2022 Repair of musculoten dinous cuff of shoulder Dallas Sridhar Start: 08-30-2019 Arthroscopy of shoulder Dallas Sridhar Comment on above: Right Start: 10-20-1987 ACDF neck Dallas Layla ortega Decompression of med alysha nerve Dallaspedro Waller Comment on above: bilateral excision of basal ce ll from above eye Dallas Waller excision of melanoma right leg Dallas Waller Laparoscopic cholecystectomy Dallas Waller Plan of Treatment Date Care Activity Detail Author Start: 06-20-2025 Influenza vaccination Influenza Vacc ine (#1) [facility] Start: 05-25-2025 End: 05-25-2025 Patient encounter procedure 05/25/2025 9:00 AM EDT Office Visit [facility] [address] [place] [id number] Richi Hoang, DO [address] [place] [address] [facility] Start: 05-17-2025 End: 05-17-2025 Patient encounter procedure 05/17/2025 10:45 AM EDT Office Visit [facility] [address] [place] [address] Sarah Betancourt, DO [address] [place] [address] Arrived [facility] 230 Comment on above: Arrived Start: 04-20-2025 End: 04-20-2026 Bacteria identified in Urine by Culture Urine culture Microbiology Routine Dysuria Expected: 04/20/2025, Expires: 04/20/2026 [facility] Work Phone: Comment on above: Expected: 04/20/2025 , Expires: 04/20/2026 Start: 04-20-2025 End: 04-20-2026 CBC W Auto Differential panel - Blood CBC and differential Lab Routine Routine general medical examination at a health care facility Expected: 04/20/2025 (Approximate), Expires: 04/20/2026 [facility] Comment on above: Expected: 04/20/2025 (Approximate), Expires: 04/20/2026 Start: 04-20-2025 End: 04-20-2026 Comprehensive metabolic 2000 panel - Serum or Plasma Comprehensive metabolic panel Lab Routine Routine general medical examination at a health care facility Expected: 04/20/2025 (Approximate), Expires: 04/20/2026 [facility] Work Phone: Comment on above: Expected: 04/20/2025 (Approximate), Expires: 04/20/2026 Start: 04-20-2025 End: 04-20-2026 LIPID PANEL W/ CHOL/HDL RATIO LIPID PANEL W/ CHOL/HDL RATIO Lab Routine Routine general medical examination at a health care facility Expected: 04/20/2025 (Approximate), Expires: 04/20/2026 [facility] Comment on above: Expected: 04/20/2025 (Approximate), Expires: 04/20/2026 Start: 04-20-2025 End: 04-20-2026 Microalbumin/Creatinine panel in random Urine Microalbumin / creatinine urine ratio Lab Routine Elevated blood pressure reading Expected: 04/20/2025 (Approximate), Expires: 04/20/2026 [facility] Comment on above: Expected: 04/20/2025 (Approximate), Expires: 04/20/2026 Start: 04-20-2025 End: 04-20-2026 Thyrotropin [Units/volume] in Serum or Plasma Tsh+free t4 Lab Routine Elevated blood pressure reading Expected: 04/20/2025 (Approximate), Expires: 04/20/2026 [facility] Comment on above: Expected: 04/20/2025 (Approximate), Expires: 04/20/2026 Start: 04-20-2025 End: 04-20-2026 Thyroxine (T4) free [Mass/volume] in Serum or Plasma T4, free Lab Routine Elevated blood pressure reading Expected: 04/20/2025 (Approximate), Expires: 04/20/2026 [facility] Comment on above: Expected: 04/20/2025 (Approximate), Expires: 04/20/2026 Start: 04-20-2025 End: 04-20-2025 Patient encounter procedure 04/20/2025 11:45 AM EDT Office Visit [facility] [address] [place] [address] Sarah Betancourt DO [address] [place] [address] Arrived [facility] 230 Comment on above: Arrived Start: 09-04-2023 Screening for malign ant neoplasm of breast Mammogram [facility] Start: 1993 Screening for malign ant neoplasm of cervix [facility] Start: 1984 Screening for malign ant neoplasm of cervix Pap Smear [facility] Start: 1964 Skin Cancer Screening Skin Cancer Sc reening [facility] Start: 1965 Screening for malign ant neoplasm of colon [facility] DBT Breast - bilater al screening Bilateral screening mammogram with tomosynthesis Imaging Routine Encounter for screening mammogram for malignant neoplasm of breast Ordered: 04/20/2025 [facility] Comment on above: Ordered: 04/20/2025 Payers Date Payer Category Payer [facility] BCBS [id number] 2022 Unknown [id number] 2022 Self-pay 2022 Worker's Compensation [id number] 1965 Unknown [id number] 1963 Unknown [id number] 1963 Unknown [id number] 1965 Unknown [id number] 1963 Unknown [id number] 1963 Unknown [id number] 1963 Unknown [id number] 1963 Unknown [id number] 1963 Unknown [id number] [id number] 1959 Unknown [id number] [facility] [id number] Unknown [employer] [facility] [place] 274 [id number] Social History Date Type Detail Facility Tobacco smoking status No Smokin g Status Entered [facility] Start: 01-23-2024 End: 05-17-2025 Sex Assigned At Female [facility] Tobacco smoking status No Smokin g Status Entered [facility] Start: 10-15-2020 End: 02-15-2024 Tobacco smoking status NVIS Ex-smoker (finding) [facility] Start: 1965 Sex Assigned At Female [facility] Start: 09-04-2024 End: 12-21-2024 Sex Female (finding) [facility] Start: 05-29-2023 Tobacco smoking stat us [facility] Never smoked tobacco [facility] Start: 05-29-2023 Tobacco use and exposure Smokeless tobacco non-user [facility] Start: 01-23-2024 Alcoholic beverage intake Lifetime non-drinker (finding) [facility] Start: 01-23-2024 End: 05-17-2025 History of Social function [facility] Start: 05-29-2023 Alcohol Comment caffeine intak e: more than 4 cups per day of coffee [facility] Start: 1965 Sex assigned at Not on file [facility] Start: 04-20-2025 End: 05-25-2025 Alcoholic beverage intake Ex-drinker (finding) [facility] Start: 04-20-2025 Alcohol Comment rare alcohol [facility] Medical [facility] Procedure Code Equipment Code Equipment Origin al Text Equipment Identifier Dates SHOULDER ARTHROS COPY W/ POSSIBLE REPAIR Dallas Waller DO 01/04/22 Non Biological Shoulder R [id number] [facility] Start: 01-04-2022 Functional Status Date Assessment Result Facility 05-17-2025 Patient Health Quest ionnaire 2 item (PHQ-2) [Reported] [facility] 04-20-2025 Patient Health Quest ionnaire 2 item (PHQ-2) [Reported] [facility] Clinical Notes 06-11-2023 to 05-25-2025 Richi Hoang, DO - 05/25/2025 9:00 AM EDTMronda Varelaaly, DO - 05/17/2025 10:45 AM EDTMattfarrah Betancourt, DO - 04/20/2025 11:45 AM EDT Note Date & Type Note Facility 05-25-2025 History of Presen t illness Narrative Images from the original note were not included. Dylan Gamble 1965 Dylan Gamble is a 59 y.o. female presents with chief complaint of Consult (colonoscopy) HPI: HPI Patient is not having any problems, no blood in his stool, no abdominal pain, no change in stool habits or stool caliber. She has been eating without any difficulty. She has not having any nausea or vomiting. She is overdue for her colonoscopy she has had. She has no family members with colon cancer. SUBJECTIVE: MEDICATIONS: ALLERGIES Current Outpatient Medications Medication Instructions dexAMETHasone (DECADRON) 6 mg, Oral, Daily rosuvastatin (CRESTOR) 20 mg, Oral, Daily SEMAGLUTIDE, 1 MG/DOSE, SC Inject under the skin [facility] in [place]-unsure of dosage. Currently using 40cc weekly valsartan (DIOVAN) 160 mg, Oral, Daily No Known Allergies PAST MEDICAL HISTORY: SOCIAL HISTORY SURGICAL HISTORY: Past Medical History: Diagnosis Date Arthritis Degenerative cervical disc Depression Frontal sinusitis GERD (gastroesophageal reflux disease) Melanoma (HCC) Other secondary kyphosis, cervical region Social History Tobacco Use Smoking status: Never Smokeless tobacco: Never Vaping Use Vaping status: Never Used Substance Use Topics Alcohol use: Not Currently Comment: rare alcohol Drug use: Never Past Surgical History: Procedure Laterality Date CARPAL TUNNEL RELEASE 2012 DILATION AND CURETTAGE NECK SURGERY 1996 [place] LAP, SURG, RADFREQ ABLATION OF UTERINE FIBROID(S), INC INTRAOP GUIDE-MONITOR [place] LAP,CHOLECYSTECTOMY 04/2016 SHOULDER ARTHROSCOPY W/ ROTATOR CUFF REPAIR Right 01/04/2022 JAB SHOULDER SURGERY Right 08/2019 REVIEW OF SYMPTOMS: Review of Systems Constitutional: Negative for appetite change, fatigue and fever. HENT: Negative for trouble swallowing. Respiratory: Negative for cough and shortness of breath. Cardiovascular: Negative for chest pain. Gastrointestinal: Negative for abdominal pain. Genitourinary: Negative for hematuria. Musculoskeletal: Negative for back pain. Skin: Negative for wound. Neurological: Negative for seizures. OBJECTIVE: Visit Vitals BP 114/82 Ht 5' 6 Wt 233 lb BMI 37.61 kg/m Smoking Status Never BSA 2.22 m Physical Exam Constitutional: Appearance: Normal appearance. HENT: Head: Atraumatic. Eyes: General: No scleral icterus. Cardiovascular: Rate and Rhythm: Regular rhythm. Pulmonary: Effort: No respiratory distress. Abdominal: General: There is no distension. Tenderness: There is no abdominal tenderness. Skin: Findings: No bruising. Neurological: Mental Status: She is alert. Gait: Gait normal. ASSESSMENT AND PLAN: Assessment/Plan Diagnoses and all orders for this visit: Encounter for screening colonoscopy - Ambulatory referral to General Surgery Plan is for colonoscopy. We discussed the prep, the procedure, the risks and the benefits and the potential complications including, but not limited to, perforation and bleeding. They would like to proceed. documented in this encounter [facility] 05-17-2025 History of Presen t illness Narrative Images from the original note were not included. Dylan Gamble is a 59 y.o. female presents with chief complaint of Chief Complaint Patient presents with Sore Throat Dylan was seen today for sore throat. Diagnoses and all orders for this visit: Pharyngitis, unspecified etiology - azithromycin (Zithromax) 250 MG tablet; Take 2 tablets (500 mg) by mouth Daily for 1 day, THEN 1 tablet (250 mg) Daily for 4 days. - dexAMETHasone (Decadron) 6 MG tablet; Take 1 tablet (6 mg) by mouth Daily for 3 days Sore throat - POCT rapid strep A manually resulted - STATUS COVID-19/FLU - azithromycin (Zithromax) 250 MG tablet; Take 2 tablets (500 mg) by mouth Daily for 1 day, THEN 1 tablet (250 mg) Daily for 4 days. - dexAMETHasone (Decadron) 6 MG tablet; Take 1 tablet (6 mg) by mouth Daily for 3 days Assessment & Plan 1. Throat infection. Reports severe obstructive throat pain starting 2 days ago, rated 9 out of 10 in severity. Examination revealed significant erythema and inflammation without significant exudates. Anterior cervical lymphadenopathy was tender to touch. Tested negative for strep, flu, and COVID-19. A treatment plan was discussed and agreed upon. All questions were answered. Dexamethasone 6 mg daily and a Z-Jorge (azithromycin) will be prescribed to cover typical infections. Prescriptions will be sent to pharmacy. Advised to take the medications with food. If symptoms do not improve or return, testing for mono will be considered. MEDICATION SUMMARY: Medication Changes As of 05/17/2025 11:24 AM Refills Start Date End Date Added: azithromycin (Zithromax) 250 MG tablet 0 05/17/2025 05/22/2025 Take 2 tablets (500 mg) by mouth Daily for 1 day, THEN 1 tablet (250 mg) Daily for 4 days. - Oral Added: dexAMETHasone (Decadron) 6 MG tablet 0 05/17/2025 05/20/2025 Take 1 tablet (6 mg) by mouth Daily for 3 days - Oral Medication List at End of Visit As of 05/17/2025 11:24 AM Refills Start Date End Date azithromycin (Zithromax) 250 MG tablet 0 05/17/2025 05/22/2025 Take 2 tablets (500 mg) by mouth Daily for 1 day, THEN 1 tablet (250 mg) Daily for 4 days. - Oral dexAMETHasone (Decadron) 6 MG tablet 0 05/17/2025 05/20/2025 Take 1 tablet (6 mg) by mouth Daily for 3 days - Oral rosuvastatin (Crestor) 20 MG tablet 11 05/12/2025 05/12/2026 Take 1 tablet (20 mg) by mouth Daily - Oral SEMAGLUTIDE, 1 MG/DOSE, SC -- -- Inject under the skin Med spa in [place]-unsure of dosage. Currently using 40cc weekly - Subcutaneous Patient-reported medication valsartan (Diovan) 160 MG tablet 3 04/20/2025 04/20/2026 Take 1 tablet (160 mg) by mouth Daily - Oral SARAH BETANCOURT D.O. This note was entered using [employer]. Grammatical and dictation errors maybe present in translation *I have reviewed and reconciled the history and medication list with the patient today* History of Present Illness Started with sore throat Friday evening. Yesterday sore throat worsened. Has also been experiencing a lot of nausea and fatigue, and having headaches. Denies nasal congestion, sinus pressure. Does admit to having chills but no fever when checking. Has been taking otc cough and cold medication which helps temporarily. Worse symptom is sore throat. NO hx of strep throat. The patient presents with severe obstructive throat pain starting 2 days ago. She reports a sore throat, which she rates as 9 out of 10 in severity. The pain has slightly subsided since this morning. She has not taken any [id number] pain relievers such as Motrin or Tylenol. Instead, she has been using cold medicine and cough drops. She experiences chills but has not measured her temperature to confirm a fever. She also reports soreness in all her glands, fatigue, and a lack of energy. Prolonged periods of standing result in increased pain and nausea. Her appetite has decreased due to the pain associated with swallowing, limiting her intake to apple sauce, chicken broth, and tea. She managed to take her medication this morning despite the difficulty in swallowing. Diet: Limited to apple sauce, chicken broth, and tea due to throat pain. Coffee/Tea/Caffeine-containing Drinks: Tea Sleep: Slept all day yesterday after returning home. SUBJECTIVE: Current Medications: Allergies/Social History: ROS Current Outpatient Medications Medication Instructions azithromycin (Zithromax) 250 MG tablet Take 2 tablets (500 mg) by mouth Daily for 1 day, THEN 1 tablet (250 mg) Daily for 4 days. dexAMETHasone (DECADRON) 6 mg, Oral, Daily rosuvastatin (CRESTOR) 20 mg, Oral, Daily SEMAGLUTIDE, 1 MG/DOSE, SC Inject under the skin Med spa in [place]-unsure of dosage. Currently using 40cc weekly valsartan (DIOVAN) 160 mg, Oral, Daily No Known Allergies Social History Tobacco Use Smoking status: Never Smokeless tobacco: Never Vaping Use Vaping status: Never Used Substance Use Topics Alcohol use: Not Currently Comment: rare alcohol Drug use: Never Review of Systems Constitutional: Positive for fatigue. Negative for fever. HENT: Positive for sore throat. Negative for congestion, ear pain, postnasal drip and rhinorrhea. Respiratory: Negative for cough and shortness of breath. Cardiovascular: Negative for chest pain. Gastrointestinal: Negative for abdominal distention. Musculoskeletal: Positive for myalgias. Skin: Negative for rash. Neurological: Negative for dizziness. All other systems reviewed and are negative. Past Medical History: Surgical History: Depression Screen/FHx Past Medical History: Diagnosis Date Arthritis Degenerative cervical disc Depression Frontal sinusitis GERD (gastroesophageal reflux disease) Melanoma (HCC) Other secondary kyphosis, cervical region Past Surgical History: Procedure Laterality Date CARPAL TUNNEL RELEASE 2012 DILATION AND CURETTAGE NECK SURGERY 1996 [place] LAP, SURG, RADFREQ ABLATION OF UTERINE FIBROID(S), INC INTRAOP GUIDE-MONITOR [place],CHOLECYSTECTOMY 04/2016 SHOULDER ARTHROSCOPY W/ ROTATOR CUFF REPAIR Right 01/04/2022 [facility] SHOULDER SURGERY Right 08/2019 Depression: Not at risk (05/17/2025) PHQ-2 PHQ-2 Score: 0 Family History Problem Relation Name Age of Onset Alzheimer's disease Mother Diabetes Mother Alcohol abuse Father Lung cancer Father Diabetes Father Lung cancer Brother No Known Problems Son OBJECTIVE: 05/17/2025 10:38 AM 04/20/2025 11:28 AM 01/23/2024 10:52 AM 10/07/2023 2:26 PM 05/29/2023 3:32 PM 12/10/2022 12:00 PM 08/08/2022 12:00 PM Vitals BMI 39.11 kg/m2 39.77 kg/m2 43.9 kg/m2 43.1 kg/m2 43.67 kg/m2 43.77 kg/m2 41.9 kg/m2 BSA (m2) 2.22 m2 2.23 m2 2.35 m2 2.32 m2 2.34 m2 2.34 m2 2.29 m2 Systolic 120 158 150 142 132 130 Diastolic 76 96 82 88 88 84 Heart Rate 86 72 72 80 SpO2 98 % 98 % 98 % 99 % Temp 98.1 F 98.4 F 97.7 F 96.9 F 97.6 F Height (in) 5' 5 5' 5 5' 5 5' 5 5' 5 5' 5 5' 5 Weight (lb) 235 239 263.8 259 262.4 263 251.8 Visit Report Report Report Report Report Report Physical Exam General Appearance: Alert and oriented. Pleasant affect. No acute distress. Well nourished. Head: Atraumatic normal cephalic. No masses or swelling. Eyes: EOMI, sclera white, conjunctiva clear, no injection. Pupils relatively equal size. Ears: External ears normal. No signs or trauma or infection. Nose: Nasal mucosal pink and moist, No discharge or congestion. Normal appearance of the soft tissue of the nose. Throat: Significant erythema and inflammation noted in the throat. No significant exudates observed. Neck: Anterior cervical lymphadenopathy is tender to touch. Respiratory: Clear to auscultation bilaterally, no wheezes, rhonchi or crackles. Good breaths sounds throughout lung gage. Cardiovascular: Regular rate and rhythm, no murmurs. Normal S1, S2. Musculoskeletal/Extremities: No gross deformities or malalignment, normal ambulation, no swelling, no deformities. Skin: Warm and dry, no rashes. Neurological: Cranial nerves II-VII grossly intact, no gross neurologic abnormalities or focal defects. Psychiatric: Cooperative, pleasant, no signs of major mood disorder. documented in this encounter [facility] 04-20-2025 History of Presen t illness Narrative Images from the original note were not included. Dylan Gamble is a 59 y.o. female presents with chief complaint of Chief Complaint Patient presents with Rash Dylan was seen today for rash. Diagnoses and all orders for this visit: Dysuria - POCT Urinalysis dipstick - Urine culture; Future - Urine culture Assessment & Plan 1. Elevated blood pressure. Prior to the patient's appointment today, I reviewed past laboratory testing and any diagnostics as it relates in the management of their blood pressure. Current blood pressure readings were reviewed with the patient along with blood pressure goal of less than 140/90. Complications forth coming from uncontrolled blood pressure were reviewed. Treatment of hypertension: Start medication- side effects reviewed. By the end of today's visit, all questions were answered that were brought forth from the patient. I spent a total of 30 minutes or more a date of the service which included preparing to see the patient, [id number] patient care including obtaining/reviewing history and performing appropriate medical examination, completing clinical documentation and coordination of care. 2. Shingles. Right anterior neck scattered erythematous papular vesicular rash, does not cross the midline, tender to touch, with some lymphadenopathy on the right side. Valtrex 1 g three times a day for 7 days and prednisone taper prescribed. Side effects were discussed. Topical lidocaine cream or roll-on spray recommended for nerve sensitivity. 3. Dizziness. Reports dizziness described as a sensation of spinning even when at rest, began last Friday, causing her to leave work early. Experiences occasional dizziness upon standing up too quickly, lasting only a few seconds, without fainting spells. Blood work to be done after shingles resolves to further investigate. Fasting blood work to be ordered to check thyroid function and other parameters once shingles resolves. Mammogram and colonoscopy to be scheduled. MEDICATION SUMMARY: Medication Changes As of 04/20/2025 12:15 PM None Medication List at End of Visit As of 04/20/2025 12:15 PM Refills Start Date End Date SEMAGLUTIDE, 1 MG/DOSE, SC -- -- Inject under the skin [email or web address] [place]-unsure of dosage. Currently using 40cc weekly - Subcutaneous Patient-reported medication SARAH BETANCOURT D.O. This note was entered using Authy copilot. Grammatical and dictation errors maybe present in translation *I have reviewed and reconciled the history and medication list with the patient today* History of Present Illness Noticed bumps on neck on Friday. Woke up with bump on Friday and today noticed smaller bumps going up her neck. Areas are burning and itchy. Thinks she was bit by something because she saw fang bites initially. Not using anything on area. BP has been fluctuating, she started getting dizziness and this is why she started checking. BP readings 158/92, 135/92, 138/96. Describes dizziness as a feeling like my eyes are not adjusting right that occurs randomly, usually why she is sitting down. Denies with a position changes. Denies CP or SOB. Wants to be referred for screening colonoscopy and also have a mammogram done. Also would like yearly physical blood work. Has been experiencing dysuria with urinating in the past 2 days. Denies fever. The patient is a 59-year-old female with multiple medical problems who presents for evaluation of elevated blood pressure, dizziness, and shingles. She reports experiencing dizziness, which she describes as a sensation of spinning even when at rest. This symptom began last Friday, causing her to leave work early due to the severity of the dizziness. She also experiences occasional dizziness upon standing up too quickly, but these episodes are brief, lasting only a few seconds. She has not experienced any fainting spells. She has been monitoring her blood pressure since the onset of the dizziness and notes that the diastolic reading remains high. Her blood pressure this morning was 135/92, measured after waking up and consuming a cup of coffee. She also reports recent weight loss. She has been taking injections since 11/2024 but did not administer one today due to concerns about potential side effects. She supplements her diet with a multivitamin and an energy supplement, both in gummy form, taken twice daily. She reports being inconsistent with her medication regimen. She believes she has been bitten by an insect, as she has noticed itchy bumps on her neck that have been present since Friday. The bumps initially appeared as two small spots resembling fang morales with white dots but have since spread across her neck. She describes the sensation as painful and itchy. She has a history of shingles and was previously advised to receive the shingles vaccine, which she did not do. She is curious about whether it is safe for her to return to work and if the condition is contagious. She also inquires about the possibility of swimming in a pool and attending a picnic on Friday. She expresses concern about her fluctuating blood pressure, which has been predominantly high. She recalls a previous visit to the ER in 08/2024 for knee pain, during which her blood pressure was recorded as 193/99. She reports no episodes of tachycardia or palpitations. She reports experiencing headaches more frequently, which she describes as dull and aching. She does not experience spontaneous nosebleeds but notes that they can occur if she blows her nose. She wears glasses for driving and reading but does not wear them all the time. She has bifocals on her glasses but finds it difficult to get used to them because she does not wear them consistently. She needs to schedule a colonoscopy and mammogram. She has never had a colonoscopy before. She mentions that anesthesia makes her very sick, causing her to vomit for hours upon waking. FAMILY HISTORY Her sister from liver disease. SUBJECTIVE: Current Medications: Allergies/Social History: ROS Current Outpatient Medications Medication Instructions SEMAGLUTIDE, 1 MG/DOSE, SC Inject under the skin [facility] [place]-unsure of dosage. Currently using 40cc weekly No Known Allergies Social History Tobacco Use Smoking status: Never Smokeless tobacco: Never Vaping Use Vaping status: Never Used Substance Use Topics Alcohol use: Not Currently Comment: rare alcohol Drug use: Never Review of Systems Constitutional: Negative for fatigue. HENT: Negative for rhinorrhea. Respiratory: Negative for cough and shortness of breath. Cardiovascular: Negative for chest pain. Gastrointestinal: Negative for abdominal distention. Skin: Negative for rash. Neurological: Positive for dizziness, light-headedness and headaches. All other systems reviewed and are negative. Past Medical History: Surgical History: Depression Screen/FHx Past Medical History: Diagnosis Date Arthritis Degenerative cervical disc Depression Frontal sinusitis GERD (gastroesophageal reflux disease) Melanoma (HCC) Other secondary kyphosis, cervical region Past Surgical History: Procedure Laterality Date CARPAL TUNNEL RELEASE 2012 DILATION AND CURETTAGE NECK SURGERY 1996 [place], SURG, RADFREQ ABLATION OF UTERINE FIBROID(S), INC INTRAOP GUIDE-MONITOR [place],CHOLECYSTECTOMY 04/2016 SHOULDER ARTHROSCOPY W/ ROTATOR CUFF REPAIR Right 01/04/2022 [facility] SHOULDER SURGERY Right 08/2019 Depression: Not at risk (04/20/2025) PHQ-2 PHQ-2 Score: 0 Family History Problem Relation Name Age of Onset Alzheimer's disease Mother Diabetes Mother Alcohol abuse Father Lung cancer Father Diabetes Father Lung cancer Brother No Known Problems Son OBJECTIVE: 04/20/2025 11:28 AM 01/23/2024 10:52 AM 10/07/2023 2:26 PM 05/29/2023 3:32 PM 12/10/2022 12:00 PM 08/08/2022 12:00 PM 07/23/2022 12:00 PM Vitals BMI 39.77 kg/m2 43.9 kg/m2 43.1 kg/m2 43.67 kg/m2 43.77 kg/m2 41.9 kg/m2 41.93 kg/m2 BSA (m2) 2.23 m2 2.35 m2 2.32 m2 2.34 m2 2.34 m2 2.29 m2 2.29 m2 Systolic 158 150 142 132 130 124 Diastolic 96 82 88 88 84 84 Heart Rate 72 72 80 SpO2 98 % 98 % 99 % Temp 98.4 F 97.7 F 96.9 F 97.6 F Height (in) 5' 5 5' 5 5' 5 5' 5 5' 5 5' 5 5' 5 Weight (lb) 239 263.8 259 262.4 263 251.8 252 Visit Report Report Report Report Report Physical Exam General Appearance: Alert and oriented. Pleasant affect. No acute distress. Well nourished. Head: Atraumatic normal cephalic. No masses or swelling. Eyes: EOMI, sclera white, conjunctiva clear, no injection. Pupils relatively equal size. Ears: External ears normal. No signs or trauma or infection. Nose: Nasal mucosal pink and moist, No discharge or congestion. Normal appearance of the soft tissue of the nose. Throat: Lips moist, Teeth and gums in good condition. Neck: Right anterior neck shows scattered erythematous papular vesicular rash. Rash does not cross the midline. There is tenderness upon touch and some lymphadenopathy on the right side. Respiratory: Clear to auscultation bilaterally, no wheezes, rhonchi or crackles. Good breaths sounds throughout lung gage. Cardiovascular: Regular rate and rhythm, no murmurs. Normal S1, S2. Musculoskeletal/Extremities: No gross deformities or malalignment, normal ambulation, no swelling, no deformities. Skin: Warm and dry, no rashes. Neurological: Cranial nerves II-VII grossly intact, no gross neurologic abnormalities or focal defects. Psychiatric: Cooperative, pleasant, no signs of major mood disorder. documented in this encounter [facility] 08-06-2023 Evaluation note Encounter Date Diagnosis Assessment Notes Jul, Severe obesity (BMI >= 40) (ICD-10 - E66.01) Consultation date 06-11-2023, weight (pounds): 262.5 Follow-up date 07-09-2023, weight (pounds): 263.9 Follow-up date 08-06-2023, weight (pounds): 254.8 Plan is to take a weight centric approach to patient care in the treatment of excess adiposity and patient's weight related comorbidities.-Dis cussed the impact of excess adiposity on overall health and increased risk of associated health conditions-Discuss ed treatment options including lifestyle interventions, such as calorie reduction and physical activity, and use of medications as an adjunct to amplify adherence to healthy behavior change-Discussed benefits, risks and side effects of medication. After informed discussion, patient would like to proceedOrders:-AOM 's not covered by insurance -Phentermine started 07-09-2023. Patient without side effect -Gym 3 times weekly. -Patient will look into whey powder mugplz-Aukgj-va-ca re A1c May 2023 5.9%, explained prediabetes diagnosis -Follow-up in clinic in 4 weeksThis note was created with voice recognition software. Please excuse errors in brick loader. Jul, Dietary surveillance and counseling (ICD-10 - Z71.3) Discussed in detail high-protein, high-fiber, low-fat nutrition plan favoring calorie deficit and lean tissue mass preservation.-Lean protein sources at each meal supplemented with nutrient rich, low calorie density carbohydrates-Focu s on consuming calories earlier in the day versus later; breakfast and lunch should be largest meals-Evening meal should be high in protein and low in carbohydrate to maximize lipolysis overnight-Aim for a minimum of 30 g of protein per meal with breakfast, lunch and dinner with total daily intake reaching at least 100 g-If needed, supplement with whey protein powder or premade protein drink low in carbohydrate and low in fat-If hungry between meals, consider protein snack low in carbohydrate and low in fat -Patient using PB powder Jul, Exercise counseling (ICD-10 - Z71.89) Absolute HGS at time of consultation (pounds): 51.2 Absolute HGS at time of follow-up (pounds): 54 Discussed in detail exercise interventions to promote lean tissue mass preservation during calorie restriction.-In addition to regularly scheduled endurance and resistance exercise, perform bouts of resistance exercise prior to meals using body weight, resistance bands or dumbbells/weights- Following meals, consider aerobic exercise, such as brisk walking, to improve blood sugars and to mitigate hyperinsulinemia Jul, Dyslipidemia (ICD-10 - E78.5) Lipid panel March 2022 showing LDL-C 124 Jul, Prediabetes (ICD-10 - R73.09) A1c 5.9% May 2023, explained insulin resistance and carbohydrate intolerance Jul, GERD (gastroesophage al reflux disease) (ICD-10 - K21.9) Jul, Low back pain (ICD-10 - M54.5) Jul, Other Patient's vital signs including BMI, blood pressure and heart rate are recorded in objective portion of note. No suspicion for drug or alcohol abuse at this time. OARRS accessed and is appropriate. Plan to utilize phentermine as adjunct to nutrition and exercise behavior change. Patient will inform clinic if side effects are experienced. Patient will be assessed at least once every 3 months. [email or web address] Other 08-23-2023 Evaluation note* Encounter Date Diagnosis Assessment Notes Treatment Notes Treatment Clinical Notes May, Severe obesity (BMI >= 40) (ICD-10 - E66.01) [email or web address] Other 08-23-2023 Evaluation note* Encounter Date Diagnosis Assessment Notes Treatment Notes Treatment Clinical Notes May, Severe obesity (BMI >= 40) (ICD-10 - E66.01) Consultation date 06-11-2023, weight (pounds): 262.5Plan is to take a weight centric approach to patient care in the treatment of excess adiposity and patient's weight related comorbidities.-Discuss ed the impact of excess adiposity on overall health and increased risk of associated health conditions-Discussed treatment options including lifestyle interventions, such as calorie reduction and physical activity, and use of medications as an adjunct to amplify adherence to healthy behavior change-Discussed benefits, risks and side effects of medication. After informed discussion, patient would like to proceedOrders:-Initiat e Wegovy 0.25 mg once weekly and titrate up as fybdtdheq-Fqepv-vg-car e A1c May 2023 5.9%, explained prediabetes diagnosis -If AOMs not covered through insurance, patient will consider compounded semaglutide-Follow up in clinic in 6 weeksThis note was created with voice recognition software. Please excuse errors in brick loader. May, Dietary surveillance and counseling (ICD-10 - Z71.3) Discussed in detail high-protein, high-fiber, low-fat nutrition plan favoring calorie deficit and lean tissue mass preservation.-Lean protein sources at each meal supplemented with nutrient rich, low calorie density carbohydrates-Focus on consuming calories earlier in the day versus later; breakfast and lunch should be largest meals-Evening meal should be high in protein and low in carbohydrate to maximize lipolysis overnight-Aim for a minimum of 30 g of protein per meal with breakfast, lunch and dinner with total daily intake reaching at least 100 g-If needed, supplement with whey protein powder or premade protein drink low in carbohydrate and low in fat-If hungry between meals, consider protein snack low in carbohydrate and low in fat -No peanut butter May, Exercise counseling (ICD-10 - Z71.89) Absolute HGS at time of consultation (pounds): 51.2Discussed in detail exercise interventions to promote lean tissue mass preservation during calorie restriction.-In addition to regularly scheduled endurance and resistance exercise, perform bouts of resistance exercise prior to meals using body weight, resistance bands or dumbbells/weights-Foll owing meals, consider aerobic exercise, such as brisk walking, to improve blood sugars and to mitigate hyperinsulinemia May, Dyslipidemia (ICD-10 - E78.5) May, Prediabetes (ICD-10 - R73.09) A1c 5.9% May 2023, explained insulin resistance and carbohydrate intolerance May, Abnormal glucose (ICD-10 - R73.09) May, GERD (gastroesophageal reflux disease) (ICD-10 - K21.9) May, Low back pain (ICD-10 - M54.5) May, Other 60 minutes was spent reviewing patient specific healthcare information, interviewing, counseling, and communicating with the patient, and documenting clinical information. [email or web address] Other Evaluation + Plan note No data available for this section [facility] information [facility] Work Phone: Evaluation noteNo InformationNort Sonian Other Evaluation note* Diagnosis Routine general medical examination at a health care facility- Primary Elevated blood pressure reading Elevated blood pressure reading without diagnosis of hypertension documented [facility] encounter [facility]* Diagnosis Encounter for screening mammogram for malignant neoplasm of breast- Primary Dysuria Encounter for screening colonoscopy Herpes zoster without complication Elevated blood pressure reading Elevated blood pressure reading without diagnosis of hypertension documented in this encounter [facility]* Diagnosis Pharyngitis, unspecified etiology- Primary Sore throat Acute pharyngitis Severe obesity (BMI 35.0-39.9) with comorbidity (CMS-HCC) documented in this encounter [facility]* Diagnosis Encounter for screening colonoscopy documented [facility] this encounter [facility] Narrative - Reported* Type Description Date Medical History Arthritis Medical History Cancer-melanoma Medical History Depression Medical History gastroesophageal reflux disease (GERD) Surgical History Procedure:Carpal tunnel release 2012 Surgical History Procedure:D&C Surgical History Procedure:Uterine Ablation Surgical History Procedure:lap cholecystectomy 0 04/2016 Surgical History Procedure:neck surge ry;ruptured vertebra; cadaver bone 1996 Surgical History Procedure:Right shoulder surger y; 08/2019 Hospitalization History See Sx Hx [email or web address] Other Hospital Discharge instructions No data available for this section [facility] No data available for this section [facility] Summary Purpose Family History No Family History Records Found Relationship Condition Age at Onset Recorded Date/T italia brother Unknown Malignant neoplasm Unknown father Unknown Diabetes mellitus Unknown Not Specified Alzheimer's disease Unknown Unknown sister Diabetes mellitus Unknown Obesity Unknown Relationship Condition Age at Onset Recorded Date/T italia brother Unknown Malignant neoplasm Unknown father Unknown Diabetes mellitus Unknown mother Alzheimer's disease Unknown Unknown sister Diabetes mellitus Unknown Obesity Unknown Advance Directives No Advanced Directives Records Found Advance Directive Response Recorded Date/ Time Advance Directives No February 10 018 12:16pm Chief Complaint and Reason for Visit Chief Complaint R69 Flu A/B RSV /PCR Chief Complaint Admit Date [id number] August 27, 2024 2 :30pm Chief Complaint Admit Date [id number] August 27, 2024 2 :30pm [id number] September 24, 2024 3 :45pm [id number] October 29, 2024 3 :30pm r knee sprain November 02, 2024 4 :45pm Chief Complaint Admit Date [id number] September 24, 2024 3 :45pm [id number] October 29, 2024 3 :30pm [id number] November 26, 2024 3 :30pm r knee sprain November 30, 2024 4:00pm Chief Complaint Admit Date [id number] September 24, 2024 3 :45pm [id number] October 29, 2024 3 :30pm [id number] November 26, 2024 3 :30pm r knee sprain December 13, 2024 4:00pm Additional Source Comments INFORMATION SOURCE (unrecogn ized section and content) DATE CREATED AUTHOR 06/19/2019 [facility] DATE CREATED AUTHOR AUTHOR'S ORGANIZ ATION 09/05/2022 [facility] DATE CREATED AUTHOR AUTHOR'S ORGANIZ ATION 11/22/2022 [facility] DATE CREATED AUTHOR AUTHOR'S ORGANIZ ATION 12/23/2024 [facility] DATE CREATED AUTHOR AUTHOR'S ORGANIZ ATION 05/27/2025 [facility] dical Specialists EPIC Care Team (unrecognized sect ion and content) Team Status: Active Member Role Status Dates Sarah Betancourt DO Primary Care Provider Active Team Status: Inactive Member Role Status Dates Sarah Betancourt DO Primary Care Provider, Attending Provider Active Team Status: Inactive Member Role Status Dates Sarah Betancourt DO Primary Care Provider Active Start: August 27, 2024 End: August 27, 2024 Anthony Omer Jr, DO Attending Provider Active S tart: August 27, 2024 End: August 27, 2024 Team Status: Inactive Member Role Status Dates Sarah Betancourt DO Primary Care Provider Active Start: September 24, 2024 End: September 24, 2024 Anthony Omer Jr, DO Attending Provider Active S tart: September 24, 2024 End: September 24, 2024 Team Status: Inactive Member Role Status Dates Sarah Betancourt DO Primary Care Provider Active Start: October 29, 2024 End: October 29, 2024 Anthony Omer Jr, DO Attending Provider Active S tart: October 29, 2024 End: October 29, 2024 Team Status: Active Member Role Status Dates Sarah Betancourt DO Primary Care Provider Active Start: November 02, 2024 Anthony Omer Jr, DO Attending Provider Active S tart: November 02, 2024 Team Status: Inactive Member Role Status Dates Sarah Betancourt DO Primary Care Provider Active Start: November 26, 2024 End: November 26, 2024 Anthony Omer Jr, DO Attending Provider Active S tart: November 26, 2024 End: November 26, 2024 Team Status: Active Member Role Status Dates Sarah DO Charlene Primary Care Provider Active Start: November 30, 2024 Anthony Omer Jr, DO Attending Provider Active S tart: November 30, 2024 Team Status: Inactive Member Role Status Dates Sarah Betancourt DO Primary Care Provider Active Start: December 13, 2024 End: December 13, 2024 Anthony Omer Jr, DO Attending Provider Active S tart: December 13, 2024 End: December 13, 2024 Leather Piece Inspector Relationship Specialty Start Date End Date Sarah Betancourt DO [address] [place] [address] PCP - General Family Medicine 02/25/23 Leather Piece Inspector Relationship Specialty Start Date End Date Sarah Betancourt DO [address] [place] [address] PCP - General Family Medicine 02/25/23 Leather Piece Inspector Relationship Specialty Start Date End Date Sarah Betancourt DO [address] [place] [address] PCP - General Family Medicine 02/25/23 Leather Piece Inspector Relationship Specialty Start Date End Date Sarah Betancourt DO [address] [place] [address] PCP - General Family Medicine 02/25/23 Leather Piece Inspector Relationship Specialty Start Date End Date Sarah Betancourt DO [address] [place] [address] PCP - General Family Medicine 02/25/23 Goals (unrecognized section and content) Goals may be documented in a n alternate section REASON FOR VISIT (unrecogniz ed section and content) Reason Comments Rash Reason Comments Sore Throat Reason Comments Consult colonoscopy Specialty Diagnoses / Procedures Referred By Contac t Referred To Contact General Surgery Diagnoses Encounter for screening colonoscopy Procedures [place] OFFICE/OUTPATIENT NEW HIGH MDM 60 MINUTES Sarah Betancourt, DO [address] [place] [address] Phone: tel: fax: Richi Hoang, DO [address] [place] [address] Phone: tel: fax: Referral ID Status Reason Start Date Expiration Date V isits Requested Visits Authorized [id number] Closed Specialty Services Required 04/20/2025 10/17/2025 1 FOR RECORDS PERTAINING TO PATIENTS WHO ARE OR HAVE BEEN ENROLLED IN A CHEMICAL DEPENDENCY/SUBSTANCEABUSE PROGRAM, SOME INFORMATION MAY BE OMITTED. This clinical summary was aggregated from multiple sources. Caution should be exercised in using it in the provision of clinical care. This summary normalizes information from multiple sources, and as a consequence, information in this document may materially change the coding, format and clinical context of patient data. In addition, data may be omitted in some cases. CLINICAL DECISIONS SHOULD BE BASED ON THE PRIMARY CLINICAL RECORDS. [email or web address] provides no warranty or guarantee of the accuracy or completeness of information in this document.
[2025-06-21 07:37] VITALS: BP 145/89; PULSE 78; TEMP 36.8; O2SAT 97; BMI 37.4
--- NOTE | 2025-06-21 07:49 | ED.GENADUL1 ---
HPI HPI - General Adult General Chief complaint: Extremity Injury, Lower Stated complaint: BWC L KNEE PAIN Time Seen by Provider: 06/21/25 07:23 Source: patient Mode of arrival: walk-in Limitations: no limitations History of Present Illness HPI narrative: Patient is a 59-year-old female presenting to the emergency department with complaints of left knee pain. Patient states she woke up in the middle of the night last night with left knee pain. She states the pain is located in the back of the leg and radiates to the front of her knee. She denies any injuries to the area. She denies any prior procedures or surgeries to the knee. She states she is still able to ambulate, however when she fully extends her knee, she has significant pain. She states she had pain like this in her right knee last year which eventually resolved on its own. She denies any other systemic symptoms such as fevers, chills, chest pain, shortness breath, nausea, or vomiting. She has been taking Tylenol, which only minimally relieved the pain. Related Data Home Medications ?Medication ?Instructions ?Recorded ?Confirmed rosuvastatin 20 mg tablet mg 06/21/25 valsartan 160 mg tablet mg 06/21/25 Allergies Allergy/AdvReac Type Severity Reaction Status Date / Time No Known Drug Allergies Allergy Verified 06/21/25 07:36 Opioid HPI Opioid Management Most Recent Opioid Data: Last Pain Scale 0 08/21/24, 09:22 Review of Systems ROS Status of ROS 10 or more systems reviewed and unremarkable except as noted in history and below PFSH PFSH Social History Little interest or pleasure in doing things: not at all Feeling down, depressed, or hopeless: not at all Exam Narrative Exam Narrative: CONSTITUTIONAL: Well-appearing, answering questions and following commands appropriately SKIN: Was warm and dry. EYES: Sclerae white. EARS, NOSE, THROAT: Moist oral mucosa. RESPIRATORY: Nonlabored respirations CARDIOVASCULAR: 2+ DP pulse on the left. GASTROINTESTINAL: Abdomen is nondistended. MUSCULOSKELETAL: The left knee grossly appears normal. There is mild tenderness to palpation throughout the knee joint, mostly posterioroly in the popliteral fossa over the hamstring tendon. No peripheral edema. No palpable masses. Full range of motion with knee flexion/extension on the left. No joint effusion. No overlying erythema, induration, fluctuance, or drainage from the knee NEUROLOGIC: Patient is awake and alert. Equal strength and sensation light touch throughout the bilateral lower extremities. Constitutional Vital Signs, click to edit/add: Last Vital Signs Temp 98.2 F 06/21/25 07:37 Pulse 78 06/21/25 07:37 Resp 20 06/21/25 07:37 BP 145/89 H 06/21/25 07:37 Pulse Ox 97 06/21/25 07:37 O2 Del Method Room Air 06/21/25 07:37 Course Vital Signs Vital signs: Vital Signs Temperature 98.2 F 06/21/25 07:37 Pulse Rate 78 06/21/25 07:37 Respiratory Rate 20 06/21/25 07:37 Blood Pressure 145/89 H 06/21/25 07:37 Pulse Oximetry 97 06/21/25 07:37 Oxygen Delivery Method Room Air 06/21/25 07:37 Temperature 98.2 F 06/21/25 07:37 Pulse Rate 78 06/21/25 07:37 Respiratory Rate 20 06/21/25 07:37 Blood Pressure 145/89 H 06/21/25 07:37 Pulse Oximetry 97 06/21/25 07:37 Oxygen Delivery Method Room Air 06/21/25 07:37 Medical Decision Making MDM Narrative Medical decision making narrative: Patient is a 59-year-old female presenting to the emergency department for evaluation of atraumatic left knee pain that awoke her from her sleep just earlier this morning. Vital signs on arrival are within normal limits. She is afebrile and hemodynamically stable. Examination as noted above. The left lower extremity is neurovascularly intact with good distal strength/sensation/perfusion. Differential diagnosis includes tendinitis, knee sprain, musculoskeletal pain/strain. There is no overlying skin changes, no history of recent surgical procedures, and she has full range of motion of the knee - making septic arthritis of very low likelihood. I considered a Gomez's cyst, however I was unable to palpate any masses posteriorly. She has full range of motion of the knee and is still able to ambulate unassisted. I did offer to obtain an x-ray, though my suspicion for an acute osseous abnormality is low - patient politely declined imaging. She was given Motrin for while here in the ED. I do believe the patient is stable for discharge at this time. They were instructed to follow up with her family doctor should her symptoms persist. Return precautions were given including any new or worsening symptoms. I recommended rest, ice, elevation, and NSAIDs for the next 5 days. Patient understands and agrees to the plan. FINAL IMPRESSION: #Acute musculoskeletal left knee pain, possibly tendinitis DISPOSITION: Discharged home CONDITION: Good Discharge Plan Discharge Chief Complaint: Extremity Injury, Lower Clinical Impression: Acute knee pain Qualifiers: Laterality: left Qualified Code(s): M25.562 - Pain in left knee Patient Disposition: Home, Self-Care Time of Disposition Decision: 07:51 Condition: Good Mode of Transportation: Private Vehicle Prescriptions / Home Meds: No Action valsartan 160 mg tablet rosuvastatin 20 mg tablet Print Language: Syriac Instructions: Knee Pain (ED) Referrals: SARAH BETANCOURT [Primary Care Provider, Unknown] - 1 week
[2025-06-21] MEDS: IBUPROFEN 600 MG TABLET PO (07:57)
[2025-06-21] MEDS: HYDROCODONE/ACET 5-325 MG TABLET 1 TAB PO (07:58)
== END 2025-06-21 08:15 | disposition home or self-care (01) ==
PROVIDERS: Emergency Provider Student in an Organized Health Care Education/Training Program; PCP Family Medicine
DX: M25.562 Pain in left knee (principal)
CPT/HCPCS: 99283